=== PATIENT | male | born 1960 | race Caucasian/White ===

== ENCOUNTER 2024-09-27 20:02 | Emergency (ER) | payer SELFPAY ==
[2024-09-27 20:03] VITALS: BP 129/79; PULSE 92; RESP 16; TEMP 36.8; O2SAT 98; BMI 29.0
--- NOTE | 2024-09-27 20:56 | ED.RN ---
LEFT WITHOUT BEING SEEN AT 2036. PT. REPORTS IT IS DRAINING NOW IN REFERENCE TO HIS ARNOLD. REGISTRATION NOTIFIED
--- OUTSIDE RECORDS SUMMARY | 2024-09-27 21:00 | XMS RPT_ITS | CCD ---
Author Organization [facility] Care Team Providers Care 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 Name Role Phone Stephanie Schwartz Unavailable Unavailable PROVIDER, UNKNOWN Unavailable Unavailable Elisabet Garcia Unavailable Unavailable Panda Andreea Unavailable Unavailable PROVIDER, UNKNOWN Unavailable Unavailable Elisabet Garcia Unavailable Unavailable Elisabet Garcia MD Primary Care Provider Elisabet Garcia MD Primary Care Provider Assessment, Health Risk Attending Unavaila [facility] Care Physician, No Primary Primary Care Unava ilable Maxime Aguayo MD Unavailable [phone] ELISABET GARCIA Attending Unavailable ELISABET GARCIA Primary Care Unavailable ELISABET GARCIA Primary Care Unavailable MAXIME AGUAYO Attending Unavailable ELISABET GARCIA Primary Care Unavailable Medications Current Medications Medication Drug Class(es) Dates Sig (Normalized) Sig (Original) tamsulosin hydrochloride 0.4 mg oral capsule (1 source) alpha-Adrenergic Rhonda Start: 09-24-2024 End: 09-24-2025 take 1 capsule by mouth once daily tamsulosin (Flomax) 0.4 MG 24 hr capsule Take 1 capsule (0.4 mg) by mouth daily. 90 capsule 3 09/24/2024 09/24/2025 Active valACYclovir 1000 mg oral tablet (1 source) Herpesvirus Nucleoside Analog DNA Polymerase Inhibitor, Herpes Simplex Virus Nucleoside Analog DNA Polymerase Inhibitor, Herpes Zoster Virus Nucleoside Analog DNA Polymerase Inhibitor Start: 03-04-2024 End: 03-11-2024 take 1 tablet by mouth three times daily valACYclovir (Valtrex) 1 g tablet Take 1 tablet (1,000 mg) by mouth 3 times daily for 7 days. 21 tablet 2 03/04/2024 03/11/2024 Active Completed/Discontinued Medications Medication Drug Class(es) Dates Sig (Normalized) Sig (Original) bacitracin 0.5 unt/mg topical ointment (2 sources) Start: 06-14-2022 End: 06-14-2022 bacitracin ointment 10 ml lidocaine hydrochloride 10 mg/ml injection (2 sources) Antiarrhythmic, Amide Local Anesthetic Start: 06-14-2022 End: 06-14-2022 lidocaine (Xylocaine) 1 % injection 10 mL Problems Active Problems Problem Classification Problem Date Documented Date Episodic/Chronic Genitourinary symptoms and ill-defined conditions (4 sources) Other retention of urine; Translations: [Retention of urine, unspecified] Onset: 09-23-2024 Episodic Hyperplasia of prostate (6 sources) Benign prostatic hypertrophy with outflow obstruction; Translations: [Benign prostatic hyperplasia with lower urinary tract symptoms] Onset: 09-24-2024 09-24-2024 Chronic Open wounds of head; neck; and trunk (2 sources) Laceration of forehead; Translations: [Laceration without foreign body of other part of head, initial encounter] Episodic Other nervous system disorders (4 sources) Left leg peripheral neuropathy; Translations: [Unspecified mononeuropathy of left lower limb] Onset: 07-28-2016 11-29-2021 Chronic Other screening for suspected conditions (not mental disorders or infectious disease) (6 sources) Patient encounter status; Translations: [Encounter for screening for diabetes mellitus] Onset: 09-24-2024 09-24-2024 Episodic Spondylosis; intervertebral disc disorders; other back problems (2 sources) Other intervertebral disc degeneration, lumbosacral region; Translations: [Other intervertebral disc degeneration, lumbosacral region] Onset: 07-26-2017 Chronic Spondylosis; intervertebral disc disorders; other back problems (2 sources) Low back pain; Translations: [Low back pain] Onset: 07-26-2017 Episodic Substance-related disorders (2 sources) Nicotine dependence, cigarettes, uncomplicated; Translations: [Nicotine dependence, cigarettes, uncomplicated] Onset: 09-30-2016 Chronic Past or Other Problems Problem Classification Problem Date Documented Da te Episodic/Chronic Abdominal hernia (10 sources) Unilateral inguinal hernia, without obstruction or gangrene, not specified as recurrent; Translations: [Left inguinal hernia ] Onset: 07-28-2016 11-29-2021 Episodic Other and unspecified benign neoplasm (4 sources) Benign neoplasm of skin of lower limb; Translations: [Other benign neoplasm of skin of unspecified lower limb, including hip] Onset: 06-08-2015 11-29-2021 Episodic Other connective tissue disease (4 sources) Synovial cyst of knee; Translations: [Synovial cyst of popliteal space [[place]ry], unspecified knee] Onset: 07-28-2016 11-29-2021 Episodic Other connective tissue disease (4 sources) Infection of olecranon bursa of left elbow; Translations: [Other infective bursitis, left elbow] Onset: 08-24-2020 11-29-2021 Episodic Other skin disorders (4 sources) Sebaceous cyst of skin; Translations: [Sebaceous cyst] Onset: 06-04-2015 11-29-2021 Episodic Unclassified (4 sources) Family history of arthritis; Translations: [Family history of ischemic heart disease and other diseases of the circulatory system] Onset: 09-30-2016 Episodic Results Test Name Value Interpretation Reference Range Facility 36on 09-25-2024 36 Message released to patient as written. Elisabet Garcia MD to [facility] Alicia Clinical Engineered Wood Designer 09/25/24 5:48 AM Result Note Blood sugar and chemistry are normal. Kidney function is excellent. Cholesterol total is borderline, good is very good at 60 canceling some of the bad which is up at 123 very strict low-fat low-cholesterol diet and recheck in 1 year. Patient's further questions if applicable: Patient voiced understanding, no questions or concerns at this time. Were all questions from office addressed or relayed to the patient from encounter: Yes [facility] Office Visiton 09-24-2024 Follow-up visit [id number] Dot Garcia 1960 M Date Provider Department Center 09/24/2024 [id number]-JLOBECELISABET GARCIA [facility] Family History Problem Relation Age of Onset Heart disease Father Arthritis Father Family Status - Relation Status Age at Father Alive Level of Service:91557 NE INITIAL PREVENTIVE MEDICINE NEW PATIENT 40-64YRS Reason for Visit and Comments: ER Follow-up [831] - In [place]-09/14/24 and 09/16/24 Urinary Retention [940265] - Still have catheter Saw urology this morning - Dr Maxime Aguayo has testing scheduled [facility] Follow-up visit [id number] Dot Garcia 1960 M Date Provider Department Center 09/24/2024 [id number]-JJIWLMAXIME AGUAYOLisbeth URO BAR None Family History Problem Relation Age of Onset Heart disease Father Arthritis Father Family Status - Relation Status Age at Father Alive Level of Service:30432 NE OFFICE/OUTPATIENT NEW MODERATE MDM 45 MINUTES Reason for Visit and Comments: Urinary Retention [616433] - Patient was in hospital in [place] due to urinary retention. Catheter was placed and failed voiding trial before traveling home. He failed voiding trial again yesterday 09/23/24 and catheter replaced. Currently has bloody urine draining from catheter. [facility] Progress Noteon 09-24-2024 Progress Note Significant, he is currently on Flomax and has an indwelling catheter from urology. He is scheduled for a cystoscopy in 2 weeks. [facility] Progress Note Significant, he is currently on Flomax and has an indwelling catheter from urology. He is scheduled for a cystoscopy in 2 weeks. [facility] Progress Note 09/24/2024 Laith Garcia (: 1960) is a 64 y.o. male , Established patient, here for evaluation of the following chief complaint(s): ER Follow-up (In [place]-09/14/24 and 09/16/24) and Urinary Retention (Still have catheter /Saw urology this morning - Dr Maxime Aguayo has testing scheduled ) ASSESSMENT/PLAN: 1. Annual physical exam 2. Benign prostatic hyperplasia with urinary retention Assessment & Plan: Significant, he is currently on Flomax and has an indwelling catheter from urology. He is scheduled for a cystoscopy in 2 weeks. 3. Urinary retention due to benign prostatic hyperplasia Assessment & Plan: Significant, he is currently on Flomax and has an indwelling catheter from urology. He is scheduled for a cystoscopy in 2 weeks. 4. Screening for diabetes mellitus - Comprehensive metabolic panel 5. Screening for lipid disorders - Lipid panel Follow up in about 1 year (around 09/24/2025). SUBJECTIVE/OBJECTIVE: GERI Sandoval comes in today to establish as a new patient, he was on vacation in [place] and ended up with urinary retention and a catheter we hooked him up with urology and he is here for an annual exam. He has no other complaints at this time, he has not had blood work a number of years so we will do that today and he does continue to smoke he says he is smoking about a pack a day and we discussed smoking cessation and he gives no indication he is ready to quit. Review of Systems Constitutional: Negative for activity change, appetite change, chills, fever and unexpected weight change. HENT: Negative for ear pain and sore throat. Respiratory: Negative for shortness of breath. Cardiovascular: Negative for chest pain and palpitations. Gastrointestinal: Negative for abdominal pain, blood in stool, constipation and diarrhea. Genitourinary: Positive for difficulty urinating. Negative for dysuria, frequency, hematuria and urgency. Musculoskeletal: Negative for arthralgias and back pain. Skin: Negative. Neurological: Negative for weakness and numbness. Psychiatric/Behavioral: Negative for dysphoric mood. The patient is not nervous/anxious. Vitals: 09/24/24 1401 BP: 134/78 Pulse: 73 SpO2: 98% Weight: 176 lb 9.6 oz (80.1 kg) Height: 5' 6 (1.676 m) Physical Exam Vitals and nursing note reviewed. Constitutional: General: He is not in acute distress. Appearance: Normal appearance. HENT: Right Ear: Tympanic membrane, ear canal and external ear normal. Left Ear: Tympanic membrane, ear canal and external ear normal. Mouth/Throat: Mouth: Mucous membranes are moist. Pharynx: Oropharynx is clear. Eyes: Extraocular Movements: Extraocular movements intact. Conjunctiva/sclera: Conjunctivae normal. Pupils: Pupils are equal, round, and reactive to light. Neck: Thyroid: No thyromegaly. Vascular: No carotid bruit. Cardiovascular: Rate and Rhythm: Normal rate and regular rhythm. Heart sounds: Normal heart sounds. No murmur heard. Pulmonary: Effort: Pulmonary effort is normal. Breath sounds: Normal breath sounds. Abdominal: General: Bowel sounds are normal. Palpations: Abdomen is soft. Tenderness: There is no abdominal tenderness. Musculoskeletal: General: Normal range of motion. Cervical back: Neck supple. Lymphadenopathy: Cervical: No cervical adenopathy. Skin: General: Skin is warm and dry. Neurological: General: No focal deficit present. Mental Status: He is alert and oriented to person, place, and time. Psychiatric: Mood and Affect: Mood normal. An electronic signature was used to authenticate this note. Elisabet Garcia MD 09/24/2024 3:49 PM [facility] Progress Note Patient verified by last name and date of . [facility] Progress Note Patient identified b y name and date of .After obtaining consent, and per orders of Elisabet Garcia MD, injection of Prevnar 20 given in the left deltoid by Michelle Wells. Patient instructed to report any adverse reactions immediately. [facility] Progress Note Maxime Aguayo MD 09/24/2024 at 10:14 AM UROLOGY INITIAL OFFICE VISIT PATIENT NAME: Laith Garcia DATE OF : 1960 TODAY'S DATE: 09/24/2024 Chief Complaint: Chief Complaint Patient presents with Urinary Retention Patient was in hospital in [place] due to urinary retention. Catheter was placed and failed voiding trial before traveling home. He failed voiding trial again yesterday 09/23/24 and catheter replaced. Currently has bloody urine draining from catheter. HISTORY OF PRESENT ILLNESS: Mr. Garcia is a 64 y.o. male who presents with urinary retention I just shut down when I was in [place] Didn't make it to the hospital until next morning Catheter placed for 1.5L Never had a retention episode prior to this Took 3 tries to get the catheter working correctly Tried to get it removed on 09/16 but couldn't urinate They started him on flomax in [place] Before AUR episode, stream was weakening, increased frequency Nocturia - couple to 4-5x REVIEW OF SYSTEMS: Review of Systems Genitourinary: Positive for difficulty urinating and hematuria. Denies respiratory distress Past Medical History: Medical History[1] PastSurgical History: Surgical History[2] CurrentMedications: Current Medications[3] Allergies: Allergies[4] Social History: Social History[5] Family History: Family History[6] PHYSICAL EXAM: VITALS: BP 135/78 (BP Location: Right arm, Patient Position: Sitting) Pulse 78 Ht 5' 6 (1.676 m) Wt 180 lb (81.6 kg) BMI 29.05 kg/m? Physical Exam Constitutional: General: He is not in acute distress. Appearance: He is not ill-appearing. HENT: Head: Normocephalic and atraumatic. Right Ear: External ear normal. Left Ear: External ear normal. Nose: Nose normal. Eyes: Extraocular Movements: Extraocular movements intact. Pulmonary: Effort: Pulmonary effort is normal. No respiratory distress. Genitourinary: Comments: Catheter draining light red urine, see through Neurological: Mental Status: He is alert. DATA: No results found for: PSA No results found for: TESTOSTERONE No results found for: WBC, HGB, HCT, MCV, PLT No results found for: GLUCOSE, CALCIUM, NA, K, CO2, CL, BUN, CREATININE No components found for: LABURIN @LASTPROCPOC@ Radiology Review: Impression/Plan Laith was seen today for urinary retention. Diagnoses and all orders for this visit: Benign prostatic hyperplasia with urinary retention (Primary) Other orders - tamsulosin (Flomax) 0.4 MG 24 hr capsule; Take 1 capsule (0.4 mg) by mouth daily. Went into urinary retention while in [place] on fishing trip on 09/13/24 Catheter was placed for 1.5L Attempted void trials on 09/16 and 09/23 failed despite being on flomax daily Discussed recommendation to proceed with evaluation with cystoscopy and TRUS in the office Continue flomax daily, Rx refilled Follow up for cysto, TRUS. Maxime Aguayo MD 09/24/24 10:14 AM [1] Past Medical History: Diagnosis Date Deviated nasal septum Right inguinal hernia SCHEDULED FOR THE SURGERY TO-DAY I.E 09/30/2016 Shingles Smoker SMOKER'S COUGH [2] Past Surgical History: Procedure Laterality Date ANTERIOR CRUCIATE LIGAMENT REPAIR Right HERNIA REPAIR 09/30/2016 [facility] NASAL SEPTUM SURGERY WISDOM TOOTH EXTRACTION [3] Current Outpatient Medications: tamsulosin (Flomax) 0.4 MG 24 hr capsule, Take 1 capsule (0.4 mg) by mouth daily., Disp: 90 capsule, Rfl: 3 [4] No Known Allergies [5] Social History Socioeconomic History Marital status: Tobacco Use Smoking status: Every Day Current packs/day: 1.00 Average packs/day: 1 pack/day for 40.0 years (40.0 ttl pk-yrs) Types: Cigarettes Smokeless tobacco: Never Tobacco comments: Quit smoking: LONG TIME Substance and Sexual Activity Alcohol use: Yes Alcohol/week: 30.0 standard drinks of alcohol Types: 30 Cans of beer per week Drug use: Not Currently Sexual activity: Not Currently Partners: Female Social Drivers of Health Financial Resource Strain: Low Risk (09/21/2024) Overall Financial Resource Strain (CARDIA) Difficulty of Paying Living Expenses: Not hard at all Food Insecurity: No Food Insecurity (09/21/2024) Hunger Vital Sign Worried About Running Out of Food in the Last Year: Never true Ran Out of Food in the Last Year: Never true Transportation Needs: No Transportation Needs (09/21/2024) PRAPARE - Transportation Lack of Transportation (Medical): No Lack of Transportation (Non-Medical): No Physical Activity: Sufficiently Active (09/21/2024) Exercise Vital Sign Days of Exercise per Week: 5 days Minutes of Exercise per Session: 90 min Stress: No Stress Concern Present (09/21/2024) [place] [employer] - Occupational Stress Questionnaire Feeling of Stress : Only a little Social Connections: Moderately Integrated (09/21/2024) Social Connection and Isolation (more content not included)... [facility] 36on 09-23-2024 36 No answer - pt sched for appt 09/[address] Garcia at 2:15 . Arrive 15 min prior and bring insurance card, and ID Bring in all medication [facility] Progress Noteon 09-23-2024 Progress Note We want to inform yo u that your patient's blood pressure was noted to be elevated in our office today. We thank you for trusting us with your patient's health. Last BP: BP Readings from Last 1 Encounters: 09/23/24 1016 (!) 153/77 09/23/24 1009 (!) 157/84 [facility] Progress Note [facility] [address] [place] [id number] Urology Nursing Visit PATIENT NAME: Laith Garcia DATE OF : 1960 TODAY'S DATE: 09/23/2024 Patient presents today for indwelling flores catheter removal and trial of voiding. Patient presents for flores catheter removal and trial of voiding after episode of urinary retention. Patient is currently on Tamsulosin (Flomax). Allergies[1] Procedure: The existing 16 amharic coud? tip catheter was instilled with 250 mL of sterile water into the urinary bladder. The catheter balloon was deflated, removing 10 mL of fluid. The catheter was clamped and then removed without difficulty. The patient was unable to void immediately. Patient tolerated well. UROJET 6 ML [facility] [id number] LOT # [id number] EXPIRES 08/2026 Administered by ANNETTA Pt tolerated well PLAN: Patient was unable to void with cath removal today. 16 Greek coud? tip catheter replaced. Will plan for follow-up for office visit with Dr. Aguayo 09/24/2024 Advised patient that it is common to having some burning with urination and to see blood-tinged urine intermittently for 2-4 weeks after catheter removal due to nature of recent surgical procedure. This timeframe can be longer if on blood thinning medications. Encouraged patient to increase fluids over the next few weeks to help with blood in urine and burning with urination that can occur. Patient instructed to go to ER if fever >100.4F +/- chills develop or unable to urinate. [1] No Known Allergies [facility] Comprehensive Metabolic Prof [facility] 03-14-2024 Albumin [Mass/Vol] 3.6 g/dL Normal 3.2-5.0 [facility] Comment on above: Performed By: #### L [id number], [id number] #### [facility] [address] [place], [address] Albumin/Globulin [Mass ratio] 1.0 {ratio} Normal 0.9-2.4 [facility] Comment on above: Performed By: #### L [id number], [id number] #### [facility] [address] [facility] [place], [address] ALK P 79 U/L Normal 45-117 [facility] Comment on above: Performed By: #### L [id number], [id number] #### [facility] [address] [place], [address] ALT [Catalytic activity/Vol] 33 U/L Normal 16-61 [facility] Comment on above: Performed By: #### L [id number], [id number] #### [facility] [address] [place], [address] AST [Catalytic activity/Vol] 23 U/L Normal 15-37 [facility] Comment on above: Performed By: #### L [id number], [id number] #### [facility] [address] [place], [address] Bilirubin [Mass/Vol] 0.50 mg/dL Normal 0.20-1.00 [facility] Comment on above: Result Comment: For patients on eltrombopag therapy, use of Dimension [place] TBIL is not recommended. Performed By: #### L [id number], [id number] #### [facility] [address] [place], [address] BUN/CRE 13.3 RATIO Normal 10-20 [facility] Comment on above: Performed By: #### L [id number], [id number] #### [facility] [address] [place], [address] CA,Total 9.1 mg/dL Normal 8.5-10.1 [facility] Comment on above: Performed By: #### L [id number], [id number] #### [facility] [address] [place], [address] Chloride [Moles/Vol] 106 mmol/L Normal 98-107 [facility] Comment on above: Performed By: #### L [id number], [id number] #### [facility] [address] [place], [address] CO2 [Moles/Vol] 25.0 mmol/L Normal 21.0-32.0 [facility] Comment on above: Performed By: #### L [id number], [id number] #### [facility] [address] [place], [address] Creatinine [Mass/Vol] 1.13 mg/dL Normal 0.70-1.30 [facility] Comment on above: Result Comment: The validity of the calculated GFR GFRAA in patients over 70 years has not been determined. Clinical correlation is essential. Performed By: #### L [id number], [id number] #### [facility] [address] [place], [address] EST GFR - AA 85 mL/min Normal >60 [facility] Comment on above: Result Comment: Afri can Ugandan GFR Calc Performed By: #### L [id number], [id number] #### [facility] [address] [place], [address] GAP 7 Normal 5-15 [facility] Comment on above: Performed By: #### L [id number], [id number] #### [facility] [address] [place], [address] GFR/1.73 sq M.predicted among non-blacks MDRD (S/P/Bld) [Vol rate/Area] 70 mL/min/{1.73_m2} Normal >60 [facility] Comment on above: Result Comment: Non- GFR Calc Performed By: #### L [id number], [id number] #### [facility] [address] [place], [address] Globulin (S) [Mass/Vol] 3.7 g/dL Normal 2.2-4.2 [facility] Comment on above: Performed By: #### L [id number], [id number] #### [facility] [address] [place], [address] Glucose [Mass/Vol] 116 mg/dL High 74-106 [facility] Comment on above: Result Comment: Fast ing Glucose result from 100 to 125 mg/dL suggests IMPAIRED HOMEOSTASIS per A.D.A. criteria. Performed By: #### L [id number], [id number] #### [facility] [address] [place], [address] Potassium [Moles/Vol] 4.3 mmol/L Normal 3.5-5.1 [facility] Comment on above: Performed By: #### L [id number], [id number] #### [facility] [address] [place], [address] Sodium [Moles/Vol] 138 mmol/L Normal 136-145 [facility] Comment on above: Performed By: #### L [id number], [id number] #### [facility] [address] [place], [address] T PROT 7.3 g/dL Normal 6.4-8.2 [facility] Comment on above: Performed By: #### L [id number], [id number] #### [facility] [address] [place], [address] Urea nitrogen [Mass/Vol] 15 mg/dL Normal 7-18 [facility] Comment on above: Performed By: #### L [id number], [id number] #### [facility] [address] [place], [address] Lipid Profileon 03-14-2024 Cholesterol [Mass/Vol] 193 mg/dL Normal 200 [facility] Comment on above: Result Comment: <200 mg/dL Desirable 200-240 mg/dL Borderline >240 mg/dL High Risk Performed By: #### L 500.4050, L500.4100 #### [facility] [address] [place], [address] Cholesterol in HDL [Mass/Vol] 44 mg/dL Normal [facility] Comment on above: Result Comment: The drugs N-Acetylcysteine and Metamizole may falsely depress this assay. Reference Range HDL <40 mg/dL Low HDL Cholesterol HDL >or= 60 mg/dL High HDL Cholesterol Performed By: #### L 500.4050, L500.4100 #### [facility] [address] [place], [address] Cholesterol in LDL [Mass/Vol] 116 mg/dL Normal 0-130 [facility] Comment on above: Performed By: #### L 500.4050, L500.4100 #### [facility] [address] [place], [address] Cholesterol in VLDL [Mass/Vol] 33 mg/dL Normal 5-40 [facility] Comment on above: Performed By: #### L 500.4050, L500.4100 #### [facility] [address] [place], [address] Triglyceride [Mass/Vol] 165 mg/dL Normal [facility] Comment on above: Result Comment: The drugs N-Acetylcysteine and Metamizole may falsely depress this assay. Serum Triglycerides Reference Interval Normal <150 mg/dL Borderline high 150 - 199 mg/dL High 200 - 499 mg/dL Very High > or = 500 mg/dL Performed By: #### L 500.4050, L500.4100 #### [facility] [address] [place], [address] No Panel Informationon 06-14 Percy Pacheco MD 06/14/2022 1:22 PM Laceration Repair Performed by: Percy Pacheco MD Authorized by: Percy Pacheco MD Consent: Consent obtained: Verbal Consent given by: Patient Risks, benefits, and alternatives were discussed: yes Risks discussed: Infection and pain Alternatives discussed: No treatment and delayed treatment [facility] protocol: Procedure explained and questions answered to patient or proxy's satisfaction: yes Relevant documents present and verified: yes Test results available: no Imaging studies available: no Required blood products, implants, devices, and special equipment available: no Site/side marked: yes Immediately prior to procedure, a time out was called: yes Patient identity confirmed: Verbally with patient Anesthesia: Anesthesia method: Local infiltration Local anesthetic: Lidocaine 1% w/o epi Laceration details: Location: forehead. Length (cm): 2.5 Depth (mm): 2 Pre-procedure details: Preparation: Patient was prepped and draped in usual sterile fashion Exploration: Hemostasis achieved with: Direct pressure Imaging outcome: foreign body not noted Wound extent: no areolar tissue violation noted, no fascia violation noted, no foreign bodies/material noted, no muscle damage noted, no nerve damage noted, no tendon damage noted, no underlying fracture noted and no vascular damage noted Contaminated: no Treatment: Area cleansed with: Chlorhexidine Irrigation solution: Sterile saline Irrigation volume: 5 cc Irrigation method: Pressure wash Visualized foreign bodies/material removed: no Debridement: None Scar revision: no Skin repair: Repair method: Sutures Suture size: 5-0 Suture material: Nylon Suture technique: Simple interrupted Number of sutures: 6 Approximation: Approximation: Close Repair type: Repair type: Simple Post-procedure details: Dressing: Antibiotic ointment Procedure completion: Tolerated [facility] CR Knee 3 Views Righton 07-14 CR Knee 3 Views Right Patient Name: LAITH GARCIA Diagnostic Radiology Exam Date/Time 07/26/2017 10:47:03 EDT Exam CR Knee 3 Views Right Ordering Physician MD MOSQUEDA CATHERINE Accession Number [id number] CPT4 Codes 34816 () Reason For Exam pain of right knee Report Examination: Right knee three views Indication: pain of right knee Findings: No acute fracture or dislocation is noted. Moderate medial compartment joint space loss is present with small osteophytes. The soft tissues are grossly unremarkable. Impression: No acute osseous abnormality. Medial compartment osteoarthritis. Report Dictated on Workstation: [facility] Final Dictating Physician: TINO JARQUIN Signed Date and Time: 07/26/2017 11:11 am Signed by: TINO JARQUIN Transcribed Date and Time: 07/26/2017 11:12 Normal [facility] CR Spine Lumbosacral 4+ View son 07-26-2017 CR Spine Lumbosacral 4+ Views Patient Name: LAITH GARCIA Diagnostic Radiology Exam Date/Time 07/26/2017 10:47:03 EDT Exam CR Spine Lumbosacral 4+ Views Ordering Physician MD MOSQUEDA CATHERINE Accession Number [id number] CPT4 Codes 19645 () Reason For Exam low back pain Report CLINICAL INFORMATION: Low back pain. Frontal, bilateral oblique , L5/S1 spot view and lateral views of the lumbar spine were obtained. There are 5 lumbar type vertebrae. Bone density appears normal. The vertebral heights are within normal limits. No spondylolysis is noted. Lateral view shows 0.2 cm of retrolisthesis of L2 in reference to L3. This finding is likely degenerative. Mild disc space narrowing at L1-L2, and L2-L3. Moderate disc space at L5-S1. Degenerative endplate changes throughout the lumbar spine. No fracture is noted. IMPRESSION: Mild to moderate degenerative disc and endplate changes. Report Dictated on Final Dictating Physician: MD NGUYEN LAURA Signed Date and Time: 07/26/2017 2:55 pm Signed by: MD NGUYEN LAURA Transcribed Date and Time: 07/26/2017 2:56 Normal [facility] US Venous Extremity RT lower on 07-26-2017 US Venous Extremity RT lower Patient Name: LAITH GARCIA Ultrasound Exam Date/Time 07/26/2017 10:34:56 EDT Exam US Venous Extremity RT lower Ordering Physician MD MOSQUEDA CATHERINE Accession Number [id number] CPT4 Codes 37999 (US Venous Extremity RT lower) Reason For Exam LEG SWELLING, PAIN, DVT SUSPECTED Report ULTRASOUND RIGHT LOWER EXTREMITY VEINS Protocol: Ultrasound evaluation, including color flow and Doppler sonography, of the veins of the right lower extremity was performed. Color flow imaging demonstrates normal flow. Two-dimensional imaging demonstrates no evidence of a filling defect or reduced compressibility. Pulse Doppler demonstrates normal phasic flow with adequate augmentation and normal response to Valsalva maneuver. A 4.5 a 3.3 x 1.1 cm complex cystic lesion in the right popliteal fossa is suspicious for a Perry's cyst. IMPRESSION: No evidence of deep venous thrombus in the right lower extremity. A 4.5 a 3.3 x 1.1 cm complex cystic lesion in the right popliteal fossa is suspicious for a Perry's cyst. Report Dictated on Final Dictating Physician: MD NARANJO MALAY Signed Date and Time: 07/26/2017 10:34 am Signed by: MD NARANJO MALAY Transcribed Date and Time: 07/26/2017 10:35 Normal [facility] Surgical Pathologyon 017 Surgical Pathology [id number] [facility] PATHOLOGY AND LABORATORY MEDICINE [address] [place] [phone] Fax - FINAL SURGICAL PATHOLOGY REPORT NAME: VICKEY GARCIAGLO Mendoza .O.B.: 1960 56 Y Andrae PEDERSEN NO.: [id number]: BSDSO SDS 04 PROCEDURE 09/30/2016 DATE:SURGEON: STEPHANIE SCHWARTZ M.D. RECEIVED 10/03/2016 DATE:ATTENDING: STEPHANIE SCHWARTZ M.D. REPORT DATE: 10/04/2016 COPIES TO: DIA GNOSIS:RIGHT CREMASTER, EXCISION - NON-INFLAMED ADIPOSE TISSUE AND SKELETALMUSCLEANKITW/DEEPALI ABBOTT M.D. CL INICAL INFORMATION: Right inguinal herniaSPECIMEN: HERNIA , CREMASTER ___GROSS DESCRIPTION:Right cremasterReceived in formalin are multiple fibrofatty tissue segmentsaggregating to approximately 1.5 x 1.5 cm. Some tissue is slightlymembranous. No areas of nodularity are identified. Specimen isentirely submitted in a single cassette. (bits ns, 1) JCK/NGUYENisclaimer: The following statement applies to allimmunohistochemistry, in situ hybridization, molecular studies, andimmunofluorescence testing.The use of one or more reagents in the above tests is regulated as ananalyte specific reagent (ASR). These tests were developed and theirperformance characteristics determined by the clinical laboratories [facility]. They have not been cleared by the US Food and DrugAdministration (FDA). The FDA has determined that such clearance orapproval is not necessary.All the above immunostains were performed on paraffin embedded tissue.Appropriate positive and negative controls (where applicable) were runin parallel with the patient's specimen; these controls showed expectedstaining pattern, with acceptable intensity of staining.Immunohistochemic al assays have not been validated on decalcifiedtissues. Results should be interpreted with caution given the raisedpossibility of false negativity on decalcified specimens.Case reviewed at [address], [id number]. DEPARTMENT OF PATHOLOGY AND LABORATORY MEDICINE [place], [place] [address] Normal [facility] Comment on above: Performed By: #### S UR ####Performing Lab is in report Vital Signs Date Time Vital Sign Value Performing Clinician Anil longoria 09-24-2024 14:01-0400 Body height 167.6 cm Elisabet Garcia MD Work Phone: [facility] [employer] 09-24-2024 14:01-0400 Body mass index (BMI) [Ratio] 28.5 kg/m2 Elisabet Garcia MD Work Phone: [facility] [employer] 09-24-2024 14:01-0400 Body weight 80.11 kg Elisabet Garcia MD Work Phone: [facility] [employer] 09-24-2024 14:01-0400 Diastolic blood pressure 78 mm[Hg] Elisabet Garcia MD Work Phone: [facility] [employer] 09-24-2024 14:01-0400 Heart rate 73 /min Elisabet Garcia MD Work Phone: [facility] [employer] 09-24-2024 14:01-0400 SaO2% (BldA) [Mass fraction] 98 % Elisabet Garcia MD Work Phone: [facility] [employer] 09-24-2024 14:01-0400 Systolic blood pressure 134 mm[Hg] Elisabet Estrada Work Phone: [facility] [employer] 06-14-2022 12:35-0400 Body height 167.6 cm Percy Pacheco MD Work Phone: [facility] [employer] 06-14-2022 12:35-0400 Body mass index (BMI) [Ratio] 29.05 kg/m2 Percy Pacheco MD Work Phone: [facility] [employer] 06-14-2022 12:35-0400 Body temperature 97.9 [degF] Percy Pacheco MD Work Phone: [facility] [employer] 06-14-2022 12:35-0400 Body weight 81.65 kg Percy Pacheco MD Work Phone: [facility] [employer] 06-14-2022 12:35-0400 Diastolic blood pressure 100 mm[Hg] Percy Pacheco MD Work Phone: [facility] [employer] 06-14-2022 12:35-0400 Heart rate 74 /min Percy Pacheco MD Work Phone: [facility] 06-14-2022 12:35-0400 Respiratory rate 16 /min Percy Pacheco MD Work Phone: [facility] 06-14-2022 12:35-0400 SaO2% (BldA) [Mass fraction] 97 % Percy Pacheco MD Work Phone: [facility] 06-14-2022 12:35-0400 Systolic blood pressure 149 mm[Hg] Percy Pacheco MD Work Phone: [facility] Encounters Encounter Date Encounter Type Care Provider Facility Start: 09-24-2024 End: 09-24-2024 Initial preventive medicine new patient 40-64yrs Elisabet Garcia MD Work Phone: [facility] Comment on above: Annual physical exam (Primary Dx); Benign prostatic hyperplasia with urinary retention; Urinary retention due to benign prostatic hyperplasia; Screening for diabetes mellitus; Screening for lipid disorders Start: 09-24-2024 End: 09-24-2024 Patient encounter procedure Elisabet Garcia MD Work Phone: [facility] Work Phone: Start: 09-24-2024 End: 09-24-2024 ambulatory [facility] Start: 09-24-2024 End: 09-24-2024 Encounter for general adult medical examination without abnormal findings ELISABET [facility] Start: 09-24-2024 End: 09-24-2024 ambulatory MAXIME AGUAYO [facility] Start: 09-23-2024 End: 09-23-2024 ambulatory [facility] Start: 03-14-2024 ambulatory Health Risk Assessment Facility:[facility] Start: 03-04-2024 End: 03-04-2024 Orders Only Elisabet Garcia MD Work Phone: [facility] Start: 06-14-2022 End: 06-14-2022 Emergency department patient visit Percy Pacheco MD Work Phone: [facility] Comment on above: Laceration of forehe ad, initial encounter (Primary Dx) Start: 07-26-2017 Ambulatory Andreea Mosqueda [facility] Start: 09-30-2016 Ambulatory Stephanie Eli [facility] Procedures Date Procedure Procedure Detail Performing Clinician Start: 09-21-2024 Adult depression scr eening assessment Elisabet Garcia MD Work Phone: Start: 06-14-2022 PB ED PLACEHOLDER Percy Pacheco MD Work Phone: Plan of Treatment Date Care Activity Detail Author Start: 2037 RSV Immunization for Adults (1 - 1-dose 75+ series) RSV Immunization for Adults (1 - 1-dose 75+ series) [facility] Start: 06-14-2032 DTaP/Tdap/Td Vaccine s (2 - Td or Tdap) DTaP/Tdap/Td Vaccines (2 - Td or Tdap) [facility] Start: 09-30-2025 End: 09-30-2025 Patient encounter procedure 09/30/2025 7:00 AM EDT Office Visit [address] [address] Elisabet Garcia MD [address] [facility] [place] [address] [facility] Start: 09-21-2025 Depression Screening Depression Scre ening [facility] Start: 10-16-2024 End: 10-16-2024 Patient encounter procedure 10/16/2024 8:20 AM EDT Procedure Visit [facility] [place] [address] [place] [id number] Raza Manley MD [address] [place], [place] [id number] [facility] [place] Start: 10-14-2024 Influenza vaccination Influenza Vacc ine (#1) [facility] Start: 10-07-2024 End: 10-07-2024 Patient encounter procedure 10/07/2024 8:20 AM EDT Procedure Visit [facility] [place] [address] [place] [address] Maxime Aguayo MD [address] [place] [address] [facility] [place] Start: 09-24-2024 End: 09-24-2025 Comprehensive metabolic 1998 panel - Serum or Plasma Comprehensive metabolic panel Lab Routine Screening for diabetes mellitus Expected: 09/24/2024 (Approximate), Expires: 09/24/[address] [facility] Work Phone: Comment on above: Expected: 09/24/2024 (Approximate), Expires: 09/24/2025 Start: 09-24-2024 End: 09-24-2025 Lipid 1996 panel - Serum or Plasma Lipid panel Lab Routine Screening for lipid disorders Expected: 09/24/2024 (Approximate), Expires: 09/24/[address] [facility] Comment on above: Expected: 09/24/2024 (Approximate), Expires: 09/24/2025 Start: 10-15-2023 COVID-19 Vaccine ( season) COVID-19 Vaccine ( season) [facility] Start: 10-15-2023 Influenza vaccination Influenza Vacc ine (#1) [facility] Start: 10-14-2022 Influenza vaccination Influenz a Vaccine (Season Ended) [facility] Start: 07-21-2020 COVID-19 Vaccine (3 - Booster for Moderna series) COVID-19 Vaccine (3 - Booster for Moderna series) [facility] Start: 01-08-2014 Zoster Vaccines (2 of 3) Zoster Vacc namrata (2 of 3) [facility] Start: 12-11-2013 MMR Vaccines (1 of 1 - Standard series) MMR Vaccines (1 of 1 - Standard series) [facility] Start: 2012 Screening for malign ant neoplasm of lung Lung Cancer Screening [facility] Start: 1981 Pneumococcal Vaccine : 50+ Years (1 of 2 - PCV) Pneumococcal Vaccine: 50+ Years (1 of 2 - PCV) [facility] Start: 1980 Diabetes mellitus screening Diabetes Screening [facility] Start: 1980 Hepatitis C screening Hepatitis C Sc reening [facility] Start: 1974 Depression Screening Depression Scre ening [facility] Start: 1968 Pneumococcal Vaccine : Pediatrics (0 to 5 Years) and At-Risk Patients (6 to 64 Years) (1 - PCV) Pneumococcal Vaccine: Pediatrics (0 to 5 Years) and At-Risk Patients (6 to 64 Years) (1 - PCV) [facility] Start: 1962 Hepatitis B Vaccines (1 of 3 - 3-dose series) Hepatitis B Vaccines (1 of 3 - 3-dose series) [facility] Start: 1960 HIV screening HIV Screening [facility] Start: 1962 Lipid panel Lipid Panel [facility] Start: 1962 Screening for malign ant neoplasm of colon [facility] Immunizations Immunization Date Immunization Notes Care Provider Fa cility 09-24-2024 Pneumococcal Conjuga te PCV20, Pf (Prevnar 20) Elisabet Garcia MD Work Phone: [facility] 06-14-2022 tetanus toxoid, redu sandra diphtheria toxoid, and acellular pertussis vaccine, adsorbed Percy Pacheco MD Work Phone: [facility] 01-30-2021 zoster vaccine recombinant Elisabet Garcia MD Work Phone: [facility] 11-29-2020 zoster vaccine recombinant Elisabet Garcia MD Work Phone: [facility] 05-26-2020 Moderna SARS-CoV-2 Vaccination Percy Pacheco MD Work Phone: [facility] 04-28-2020 Moderna SARS-CoV-2 Vaccination Percy Pacheco MD Work Phone: [facility] 11-13-2013 influenza virus vacc ine, whole virus Percy Pacheco MD Work Phone: [facility] 11-13-2013 zoster vaccine, live Percy baum MD Work Phone: [facility] 11-13-2013 influenza virus vacc ine, unspecified formulation Percy Pacheco MD Work Phone: [facility] Payers Date Payer Category Payer Self-pay 2024 [employer] are - HMO MMO [employer] [id number] 2024 Unknown [id number] 2022 Worker's Compensation [id number] Unknown Unknown [id number] Social History Date Type Detail Facility Start: 09-24-2024 Tobacco smoking status [facility] Smokes t obacco daily [facility] History of tobacco use Cigarette Smoker [facility] Start: 08-24-2020 End: 09-24-2024 Alcohol intake Current drinker of alcohol (finding) [facility] Start: 1960 Sex Assigned At Not on file [facility] Start: 06-04-2022 End: 06-14-2022 Exposure to SARS-CoV-2 (event) Not sure [facility] Start: 09-13-2021 Sex Male (finding) [facility] Start: 09-21-2024 End: 09-24-2024 Gender identity Not on file [facility] Start: 09-21-2024 End: 09-24-2024 Cigarettes smoked current (pack per day) - Reported [address] [facility] Start: 09-24-2024 Tobacco use and exposure Smokeless t obacco non-user [facility] How often do you nee d to have someone help you when you read instructions, pamphlets, or other written material from your doctor or pharmacy [SILS] Never [facility] Has the [employer], [employer], [employer], or water [employer] threatened to shut off services in your home in past 12Mo No [facility] Are you now , , , , never or living with a partner? [facility] How often to you hav e a drink containing alcohol? 2-3 time sa week [facility] How many standard dr inks containing alcohol do you have on a typical day? 5 or 6 [facility] How often do you hav e 6 or more drinks on 1 occasion? Weekly [facility] How hard is it for y ou to pay for the very basics like food, housing, medical care, and heating Not hard at all [facility] Do you feel stress - tense, restless, nervous, or anxious, or unable to sleep at night because your mind is troubled all the time - these days [OSQ] Only a little [facility] (I/We) worried wheth er (my/our) food would run out before (I/we) got money to buy more. Never true [facility] Clinical Notes 06-14-2022 to 09-24-2024 Assessment & Plan Note - Elisabet Garcia MD - 09/24/2024 3:48 PM EDTAssessment & Plan Note - Elisabet Garcia MD - 09/24/2024 3:48 PM Pérez Donohue MA - 09/24/2024 2:15 PM EDT Note Date & Type Note Facility 09-24-2024 Evaluation + Plan note Associated Problem(s): Urinary retention due to benign prostatic hyperplasia Significant, he is currently on Flomax and has an indwelling catheter from urology. He is scheduled for a cystoscopy in [address] [facility] 09-24-2024 Evaluation + Plan note Associated Problem(s): Benign prostatic hyperplasia with urinary retention Significant, he is currently on Flomax and has an indwelling catheter from urology. He is scheduled for a cystoscopy in [address] [facility] 09-24-2024 Miscellaneous Notes Associate d Problem(s): Urinary retention due to benign prostatic hyperplasia Significant, he is currently on Flomax and has an indwelling catheter from urology. He is scheduled for a cystoscopy in 2 weeks. Associated Problem(s): Benign prostatic hyperplasia with urinary retention Significant, he is currently on Flomax and has an indwelling catheter from urology. He is scheduled for a cystoscopy in 2 weeks. documented in this encounter [facility] 09-24-2024 History of Presen t illness Narrative Patient verified by last name and date of . Images from the original note were not included. 09/24/2024 Latih Garcia (: 1960) is a 64 y.o. male , Established patient, here for evaluation of the following chief complaint(s): ER Follow-up (In [place]-09/14/24 and 09/16/24) and Urinary Retention (Still have catheter /Saw urology this morning - Dr Maxime Aguayo has testing scheduled ) ASSESSMENT/PLAN: 1. Annual physical exam 2. Benign prostatic hyperplasia with urinary retention Assessment & Plan: Significant, he is currently on Flomax and has an indwelling catheter from urology. He is scheduled for a cystoscopy in 2 weeks. 3. Urinary retention due to benign prostatic hyperplasia Assessment & Plan: Significant, he is currently on Flomax and has an indwelling catheter from urology. He is scheduled for a cystoscopy in 2 weeks. 4. Screening for diabetes mellitus - Comprehensive metabolic panel 5. Screening for lipid disorders - Lipid panel Follow up in about 1 year (around 09/24/2025). SUBJECTIVE/OBJECTIVE: GERI Sandoval comes in today to establish as a new patient, he was on vacation in [place] and ended up with urinary retention and a catheter we hooked him up with urology and he is here for an annual exam. He has no other complaints at this time, he has not had blood work a number of years so we will do that today and he does continue to smoke he says he is smoking about a pack a day and we discussed smoking cessation and he gives no indication he is ready to quit. Review of Systems Constitutional: Negative for activity change, appetite change, chills, fever and unexpected weight change. HENT: Negative for ear pain and sore throat. Respiratory: Negative for shortness of breath. Cardiovascular: Negative for chest pain and palpitations. Gastrointestinal: Negative for abdominal pain, blood in stool, constipation and diarrhea. Genitourinary: Positive for difficulty urinating. Negative for dysuria, frequency, hematuria and urgency. Musculoskeletal: Negative for arthralgias and back pain. Skin: Negative. Neurological: Negative for weakness and numbness. Psychiatric/Behavioral: Negative for dysphoric mood. The patient is not nervous/anxious. Vitals: 09/24/24 1401 BP: 134/78 Pulse: 73 SpO2: 98% Weight: 176 lb 9.6 oz (80.1 kg) Height: 5' 6 (1.676 m) Physical Exam Vitals and nursing note reviewed. Constitutional: General: He is not in acute distress. Appearance: Normal appearance. HENT: Right Ear: Tympanic membrane, ear canal and external ear normal. Left Ear: Tympanic membrane, ear canal and external ear normal. Mouth/Throat: Mouth: Mucous membranes are moist. Pharynx: Oropharynx is clear. Eyes: Extraocular Movements: Extraocular movements intact. Conjunctiva/sclera: Conjunctivae normal. Pupils: Pupils are equal, round, and reactive to light. Neck: Thyroid: No thyromegaly. Vascular: No carotid bruit. Cardiovascular: Rate and Rhythm: Normal rate and regular rhythm. Heart sounds: Normal heart sounds. No murmur heard. Pulmonary: Effort: Pulmonary effort is normal. Breath sounds: Normal breath sounds. Abdominal: General: Bowel sounds are normal. Palpations: Abdomen is soft. Tenderness: There is no abdominal tenderness. Musculoskeletal: General: Normal range of motion. Cervical back: Neck supple. Lymphadenopathy: Cervical: No cervical adenopathy. Skin: General: Skin is warm and dry. Neurological: General: No focal deficit present. Mental Status: He is alert and oriented to person, place, and time. Psychiatric: Mood and Affect: Mood normal. An electronic signature was used to authenticate this note. Elisabet Garcia MD 09/24/2024 3:49 PM Patient identified by name and date of .After obtaining consent, and per orders of Elisabet Garcia MD, injection of Prevnar 20 given in the left deltoid by Michelle Wells. Patient instructed to report any adverse reactions immediately. documented in this encounter [facility] 06-14-2022 Note Associated Order(s): Laceration Repair Procedure Laceration Repair Performed by: Percy Pacheco MD Authorized by: Percy Pacheco MD Consent: Consent obtained: Verbal Consent given by: Patient Risks, benefits, and alternatives were discussed: yes Risks discussed: Infection and pain Alternatives discussed: No treatment and delayed treatment [facility] protocol: Procedure explained and questions answered to patient or proxy's satisfaction: yes Relevant documents present and verified: yes Test results available: no Imaging studies available: no Required blood products, implants, devices, and special equipment available: no Site/side marked: yes Immediately prior to procedure, a time out was called: yes Patient identity confirmed: Verbally with patient Anesthesia: Anesthesia method: Local infiltration Local anesthetic: Lidocaine 1% w/o epi Laceration details: Location: forehead. Length (cm): 2.5 Depth (mm): 2 Pre-procedure details: Preparation: Patient was prepped and draped in usual sterile fashion Exploration: Hemostasis achieved with: Direct pressure Imaging outcome: foreign body not noted Wound extent: no areolar tissue violation noted, no fascia violation noted, no foreign bodies/material noted, no muscle damage noted, no nerve damage noted, no tendon damage noted, no underlying fracture noted and no vascular damage noted Contaminated: no Treatment: Area cleansed with: Chlorhexidine Irrigation solution: Sterile saline Irrigation volume: 5 cc Irrigation method: Pressure wash Visualized foreign bodies/material removed: no Debridement: None Scar revision: no Skin repair: Repair method: Sutures Suture size: 5-0 Suture material: Nylon Suture technique: Simple interrupted Number of sutures: 6 Approximation: Approximation: Close Repair type: Repair type: Simple Post-procedure details: Dressing: Antibiotic ointment Procedure completion: Tolerated Percy Pacheco MD 06/14/22 1322 [facility] 06-14-2022 Note Associated Order(s): Laceration Repair Procedure Laceration Repair Performed by: Percy Pacheco MD Authorized by: Percy Pacheco MD Consent: Consent obtained: Verbal Consent given by: Patient Risks, benefits, and alternatives were discussed: yes Risks discussed: Infection and pain Alternatives discussed: No treatment and delayed treatment [facility] protocol: Procedure explained and questions answered to patient or proxy's satisfaction: yes Relevant documents present and verified: yes Test results available: no Imaging studies available: no Required blood products, implants, devices, and special equipment available: no Site/side marked: yes Immediately prior to procedure, a time out was called: yes Patient identity confirmed: Verbally with patient Anesthesia: Anesthesia method: Local infiltration Local anesthetic: Lidocaine 1% w/o epi Laceration details: Location: forehead. Length (cm): 2.5 Depth (mm): 2 Pre-procedure details: Preparation: Patient was prepped and draped in usual sterile fashion Exploration: Hemostasis achieved with: Direct pressure Imaging outcome: foreign body not noted Wound extent: no areolar tissue violation noted, no fascia violation noted, no foreign bodies/material noted, no muscle damage noted, no nerve damage noted, no tendon damage noted, no underlying fracture noted and no vascular damage noted Contaminated: no Treatment: Area cleansed with: Chlorhexidine Irrigation solution: Sterile saline Irrigation volume: 5 cc Irrigation method: Pressure wash Visualized foreign bodies/material removed: no Debridement: None Scar revision: no Skin repair: Repair method: Sutures Suture size: 5-0 Suture material: Nylon Suture technique: Simple interrupted Number of sutures: 6 Approximation: Approximation: Close Repair type: Repair type: Simple Post-procedure details: Dressing: Antibiotic ointment Procedure completion: Tolerated Percy Pacheco MD 06/14/[address] [facility] 06-14-2022 Miscellaneous Notes Associate d Order(s): Laceration Repair Procedure Laceration Repair Performed by: Percy Pacheco MD Authorized by: Percy Pacheco MD Consent: Consent obtained: Verbal Consent given by: Patient Risks, benefits, and alternatives were discussed: yes Risks discussed: Infection and pain Alternatives discussed: No treatment and delayed treatment [facility] protocol: Procedure explained and questions answered to patient or proxy's satisfaction: yes Relevant documents present and verified: yes Test results available: no Imaging studies available: no Required blood products, implants, devices, and special equipment available: no Site/side marked: yes Immediately prior to procedure, a time out was called: yes Patient identity confirmed: Verbally with patient Anesthesia: Anesthesia method: Local infiltration Local anesthetic: Lidocaine 1% w/o epi Laceration details: Location: forehead. Length (cm): 2.5 Depth (mm): 2 Pre-procedure details: Preparation: Patient was prepped and draped in usual sterile fashion Exploration: Hemostasis achieved with: Direct pressure Imaging outcome: foreign body not noted Wound extent: no areolar tissue violation noted, no fascia violation noted, no foreign bodies/material noted, no muscle damage noted, no nerve damage noted, no tendon damage noted, no underlying fracture noted and no vascular damage noted Contaminated: no Treatment: Area cleansed with: Chlorhexidine Irrigation solution: Sterile saline Irrigation volume: 5 cc Irrigation method: Pressure wash Visualized foreign bodies/material removed: no Debridement: None Scar revision: no Skin repair: Repair method: Sutures Suture size: 5-0 Suture material: Nylon Suture technique: Simple interrupted Number of sutures: 6 Approximation: Approximation: Close Repair type: Repair type: Simple Post-procedure details: Dressing: Antibiotic ointment Procedure completion: Tolerated Percy Pacheco MD 06/14/22 132 documented in this encounter [facility] 06-14-2022 Hospital Discharg e instructions Percy Pacheco MD - 06/14/2022 1:19 PM EDT Suture removal in 3 to 6 days The following attachments cannot be sent through Care Everywhere.Laceration Infection (Wallisian)documented in this encounter [facility] 06-14-2022 Emergency department Note Wound repair by physician with sutures placed. Pt tolerated well. Tatiana Funez RN 06/14/[address] [facility] 06-14-2022 Emergency department Note EMERGENCY DEPARTMENT ENCOUNTER Pt Name: Laith Garcia Birthdate 1960 Date of evaluation: 06/14/2022 ED Provider: Percy Pacheco MD CHIEF COMPLAINT Chief Complaint Patient presents with Laceration HISTORY OF PRESENT ILLNESS (Location/Symptom, Timing/Onset, Context/Setting, Quality, Duration, Modifying Factors, Severity) Note limiting factors. I wore appropriate PPE for the entirety of this encounter. History provided by: Patient historical interpreter used: No Laceration Location: forehead. Length: 2.5 cm Depth: Cutaneous Time since incident: 2 hours Laceration mechanism: Blunt object Pain details: Quality: Aching Severity: Mild Timing: Constant Progression: Unchanged Foreign body present: No foreign bodies Relieved by: Nothing Worsened by: Nothing Ineffective treatments: None tried Tetanus status: Unknown Associated symptoms: no fever, no focal weakness, no numbness, no rash, no redness, no swelling and no streaking Laith Garcia is a 61 y.o. male who presents to the emergency department with chief complaint of laceration of forehead Nursing Notes were reviewed. Limitations to history: None Outside historians: None REVIEW OF SYSTEMS Review of Systems Constitutional: Negative for fever. Skin: Positive for wound. Negative for rash. Wound of forehead Neurological: Negative for focal weakness. All other systems reviewed and are negative. Pertinent positives and negatives as per HPI. PAST MEDICAL HISTORY Past Medical History: Diagnosis Date Deviated nasal septum Right inguinal hernia SCHEDULED FOR THE SURGERY TO-DAY I.E 09/30/2016 Shingles Smoker SMOKER'S COUGH SURGICAL HISTORY Past Surgical History: Procedure Laterality Date ANTERIOR CRUCIATE LIGAMENT REPAIR Right HERNIA REPAIR 09/30/2016 [facility] NASAL SEPTUM SURGERY WISDOM TOOTH EXTRACTION CURRENT MEDICATIONS Previous Medications No medications on file ALLERGIES Patient has no known allergies. FAMILY HISTORY Family History Problem Relation Name Age of Onset Heart disease Father Arthritis Father SOCIAL HISTORY Social History Socioeconomic History Marital status: Tobacco Use Smoking status: Every Day Packs/day: 1.00 Types: Cigarettes Smokeless tobacco: Never Tobacco comments: Quit smoking: LONG TIME Substance and Sexual Activity Alcohol use: Yes Drug use: No SCREENINGS PHYSICAL EXAM ED Triage Vitals [06/14/22 1235] Temp Heart Rate Resp BP 36.6 C (97.9 F) 74 16 (!) 149/100 SpO2 Temp Source Heart Rate Source Patient Position 97 % Oral -- Sitting BP Location FiO2 (%) Right arm -- Physical Exam Vitals and nursing note reviewed. Exam conducted with a horse breaker present. Constitutional: General: He is not in acute distress. Appearance: Normal appearance. He is normal weight. He is not ill-appearing, toxic-appearing or diaphoretic. HENT: Head: Normocephalic and atraumatic. Right Ear: Tympanic membrane, ear canal and external ear normal. Left Ear: Tympanic membrane, ear canal and external ear normal. Nose: Nose normal. Mouth/Throat: Mouth: Mucous membranes are moist. Pharynx: Oropharynx is clear. No oropharyngeal exudate or posterior oropharyngeal erythema. Eyes: Extraocular Movements: Extraocular movements intact. Conjunctiva/sclera: Conjunctivae normal. Pupils: Pupils are equal, round, and reactive to light. Cardiovascular: Rate and Rhythm: Normal rate and regular rhythm. Pulses: Normal pulses. Heart sounds: Normal heart sounds. Pulmonary: Effort: Pulmonary effort is normal. Breath sounds: Normal breath sounds. Abdominal: General: Abdomen is flat. Bowel sounds are normal. Palpations: Abdomen is soft. Musculoskeletal: General: Normal range of motion. Cervical back: Normal range of motion and neck supple. Skin: General: Skin is warm. Capillary Refill: Capillary refill takes less than 2 seconds. Coloration: Skin is not jaundiced or pale. Findings: No bruising, erythema, lesion or rash. Comments: 2.5 cm laceration of mid forehead Neurological: General: No focal deficit present. Mental Status: He is alert and oriented to person, place, and time. Mental status is at baseline. Cranial Nerves: No cranial nerve deficit. Sensory: No sensory deficit. Motor: No weakness. Coordination: Coordination normal. Gait: Gait normal. Deep Tendon Reflexes: Reflexes normal. Psychiatric: Mood and Affect: Mood normal. Behavior: Behavior normal. Thought Content: Thought content normal. Judgment: Judgment normal. DIAGNOSTIC RESULTS Procedures/EKG: EKG was reviewed by myself. [facility] RAD[facility]OLOGY (Per Emergency Physician): Interpretation per the Radiologist below, if available at the time of this note: No orders to display ED BEDSIDE ULTRASOUND: Performed by ED Physician - none LABS: Labs Reviewed - No data to display All other labs were within normal range or not returned as of this dictation. EMERGENCY DEPARTMENT COURSE and DIFFERENTIAL DIAGNOSIS/MDM: Vitals: Vitals: 06/14/22 1235 BP: (!) 149/100 BP Location: Right arm Patient Position: Sitting Pulse: 74 Resp: 16 Temp: 36.6 C (97.9 F) TempSrc: Oral SpO2: 97% Weight: 81.6 kg (180 lb) Height: 1.676 m (5' 6) Patient is here for a forehead laceration which occurred 2 hours ago at work. He noted a piece of barbi his his forehead. He did not have any LOC and is not having any neck pain. He does not know when his last tetanus was. He noted he was not on blood thinning medications. On exam, he was nontoxic in appearance. No midline cervical tenderness was noted. Gcs was 15. He did have 2.5 cm laceration of mid forehead. I did not think ct of the head was indicated. Patient had no LOC and was not nauseous after incident. Wound was sutured . He was advised on suture removal in 3 to 5 days. Tetanus was updated. Final diagnosis was forehead laceration. Patient was discharged Diagnoses as of 06/14/22 1320 Laceration of forehead, initial encounter Medications lidocaine (Xylocaine) 1 % injection 10 mL (has no administration in time range) Tdap (BoostRIX) vaccine 0.5 mL (has no administration in time range) lidocaine PF (Xylocaine) 1 % injection - Pyxis ADS Override Pull (has no administration in time range) bacitracin ointment (has no administration in time range) REVAL: CRITICAL CARE TIME None CONSULTS: None PROCEDURES: Unless otherwise noted below, none Procedures FINAL IMPRESSION 1. Laceration of forehead, initial encounter DISPOSITION Discharge 06/14/2022 01:19:14 PM [facility] DISCHARGE MEDICATIONS: New Prescriptions No medications on file (Comment: Please note this report has been produced using speech recognition software and may contain errors related to that system including errors in grammar, punctuation, and spelling, as well as words and phrases that may be inappropriate. If there are any questions or concerns please feel free to contact the dictating provider for clarification.) Percy Pacheco MD (electronically signed) Emergency Medicine Provider Percy Pacheco MD 06/14/22 1321 Percy Pacheco MD 06/14/22 1336 Pt ambulatory to room 7 with approx 3.5cm head laceration to forehead. Bleeding is controlled at time of arrival. Last tetanus unknown Wound repair by physician with sutures placed. Pt tolerated well. Tatiana Funez RN 06/14/22 1348 documented in this encounter [facility] 06-14-2022 Emergency department Triage note Pt ambulatory to room 7 with approx 3.5cm head laceration to forehead. Bleeding is controlled at time of arrival. Last tetanus unknown [facility] 06-14-2022 Physician Emergen cy department Note EMERGENCY DEPARTMENT ENCOUNTER Pt Name: Laith Garcia Birthdate 1960 Date of evaluation: 06/14/2022 ED Provider: Percy Pacheco MD CHIEF COMPLAINT Chief Complaint Patient presents with Laceration HISTORY OF PRESENT ILLNESS (Location/Symptom, Timing/Onset, Context/Setting, Quality, Duration, Modifying Factors, Severity) Note limiting factors. I wore appropriate PPE for the entirety of this encounter. History provided by: Patient historical interpreter used: No Laceration Location: forehead. Length: 2.5 cm Depth: Cutaneous Time since incident: 2 hours Laceration mechanism: Blunt object Pain details: Quality: Aching Severity: Mild Timing: Constant Progression: Unchanged Foreign body present: No foreign bodies Relieved by: Nothing Worsened by: Nothing Ineffective treatments: None tried Tetanus status: Unknown Associated symptoms: no fever, no focal weakness, no numbness, no rash, no redness, no swelling and no streaking Laith Kelly Mavis is a 61 y.o. male who presents to the emergency department with chief complaint of laceration of forehead Nursing Notes were reviewed. Limitations to history: None Outside historians: None REVIEW OF SYSTEMS Review of Systems Constitutional: Negative for fever. Skin: Positive for wound. Negative for rash. Wound of forehead Neurological: Negative for focal weakness. All other systems reviewed and are negative. Pertinent positives and negatives as per HPI. PAST MEDICAL HISTORY Past Medical History: Diagnosis Date Deviated nasal septum Right inguinal hernia SCHEDULED FOR THE SURGERY TO-DAY I.E 09/30/2016 Shingles Smoker SMOKER'S COUGH SURGICAL HISTORY Past Surgical History: Procedure Laterality Date ANTERIOR CRUCIATE LIGAMENT REPAIR Right HERNIA REPAIR 09/30/2016 [facility] NASAL SEPTUM SURGERY WISDOM TOOTH EXTRACTION CURRENT MEDICATIONS Previous Medications No medications on file ALLERGIES Patient has no known allergies. FAMILY HISTORY Family History Problem Relation Name Age of Onset Heart disease Father Arthritis Father SOCIAL HISTORY Social History Socioeconomic History Marital status: Tobacco Use Smoking status: Every Day Packs/day: 1.00 Types: Cigarettes Smokeless tobacco: Never Tobacco comments: Quit smoking: LONG TIME Substance and Sexual Activity Alcohol use: Yes Drug use: No SCREENINGS PHYSICAL EXAM ED Triage Vitals [06/14/22 1235] Temp Heart Rate Resp BP 36.6 C (97.9 F) 74 16 (!) 149/100 SpO2 Temp Source Heart Rate Source Patient Position 97 % Oral -- Sitting BP Location FiO2 (%) Right arm -- Physical Exam Vitals and nursing note reviewed. Exam conducted with a horse breaker present. Constitutional: General: He is not in acute distress. Appearance: Normal appearance. He is normal weight. He is not ill-appearing, toxic-appearing or diaphoretic. HENT: Head: Normocephalic and atraumatic. Right Ear: Tympanic membrane, ear canal and external ear normal. Left Ear: Tympanic membrane, ear canal and external ear normal. Nose: Nose normal. Mouth/Throat: Mouth: Mucous membranes are moist. Pharynx: Oropharynx is clear. No oropharyngeal exudate or posterior oropharyngeal erythema. Eyes: Extraocular Movements: Extraocular movements intact. Conjunctiva/sclera: Conjunctivae normal. Pupils: Pupils are equal, round, and reactive to light. Cardiovascular: Rate and Rhythm: Normal rate and regular rhythm. Pulses: Normal pulses. Heart sounds: Normal heart sounds. Pulmonary: Effort: Pulmonary effort is normal. Breath sounds: Normal breath sounds. Abdominal: General: Abdomen is flat. Bowel sounds are normal. Palpations: Abdomen is soft. Musculoskeletal: General: Normal range of motion. Cervical back: Normal range of motion and neck supple. Skin: General: Skin is warm. Capillary Refill: Capillary refill takes less than 2 seconds. Coloration: Skin is not jaundiced or pale. Findings: No bruising, erythema, lesion or rash. Comments: 2.5 cm laceration of mid forehead Neurological: General: No focal deficit present. Mental Status: He is alert and oriented to person, place, and time. Mental status is at baseline. Cranial Nerves: No cranial nerve deficit. Sensory: No sensory deficit. Motor: No weakness. Coordination: Coordination normal. Gait: Gait normal. Deep Tendon Reflexes: Reflexes normal. Psychiatric: Mood and Affect: Mood normal. Behavior: Behavior normal. Thought Content: Thought content normal. Judgment: Judgment normal. DIAGNOSTIC RESULTS Procedures/EKG: EKG was reviewed by myself. Physician EKG interpretation can be found in [facility] RADIOLOGY (Per Emergency Physician): Interpretation per the Radiologist below, if available at the time of this note: No orders to display ED BEDSIDE ULTRASOUND: Performed by ED Physician - none LABS: Labs Reviewed - No data to display All other labs were within normal range or not returned as of this dictation. EMERGENCY DEPARTMENT COURSE and DIFFERENTIAL DIAGNOSIS/MDM: Vitals: Vitals: 06/14/22 1235 BP: (!) 149/100 BP Location: Right arm Patient Position: Sitting Pulse: 74 Resp: 16 Temp: 36.6 C (97.9 F) TempSrc: Oral SpO2: 97% Weight: 81.6 kg (180 lb) Height: 1.676 m (5' 6) Patient is here for a forehead laceration which occurred 2 hours ago at work. He noted a piece of barbi his his forehead. He did not have any LOC and is not having any neck pain. He does not know when his last tetanus was. He noted he was not on blood thinning medications. On exam, he was nontoxic in appearance. No midline cervical tenderness was noted. Gcs was 15. He did have 2.5 cm laceration of mid forehead. I did not think ct of the head was indicated. Patient had no LOC and was not nauseous after incident. Wound was sutured . He was advised on suture removal in 3 to 5 days. Tetanus was updated. Final diagnosis was forehead laceration. Patient was discharged Diagnoses as of 06/14/22 1320 Laceration of forehead, initial encounter Medications lidocaine (Xylocaine) 1 % injection 10 mL (has no administration in time range) Tdap (BoostRIX) vaccine 0.5 mL (has no administration in time range) lidocaine PF (Xylocaine) 1 % injection - Pyxis ADS Override Pull (has no administration in time range) bacitracin ointment (has no administration in time range) REVAL: CRITICAL CARE TIME None CONSULTS: None PROCEDURES: Unless otherwise noted below, none Procedures FINAL IMPRESSION 1. Laceration of forehead, initial encounter DISPOSITION Discharge 06/14/2022 01:19:14 PM PATIENT REFERRED TO: [facility] Call in 1 day DISCHARGE MEDICATIONS: New Prescriptions No medications on file (Comment: Please note this report has been produced using speech recognition software and may contain errors related to that system including errors in grammar, punctuation, and spelling, as well as words and phrases that may be inappropriate. If there are any questions or concerns please feel free to contact the dictating provider for clarification.) Percy Pacheco MD (electronically signed) Emergency Medicine Provider Percy Pacheco MD 06/14/22 1321 Percy Pacheco MD 06/14/22 1336 [employer] Work Phone: Evaluation note Diagnosis Laceration of forehead, initial encounter- Primary documented in this encounter [facility]* Diagnosis Annual physical exam- Primary Routine general medical examination at a health care facility Benign prostatic hyperplasia with urinary retention Urinary retention due to benign prostatic hyperplasia Screening for diabetes mellitus Screening for lipid disorders documented in this encounter [facility] Summary Purpose Family History No Family History Records FoundNo Family History Records FoundNo Family History Records Found Advance Directives No Advanced Directives Records FoundNo Advanced Directives Records FoundNo Advanced Directives Records Found Additional Source Comments (unrecognized sect ion and content) No Status Records FoundNo Status Records FoundNo Status Records Found INFORMATION SOURCE (unrecogn ized section and content) DATE CREATED AUTHOR 08/01/2017 [employer] DATE CREATED AUTHOR AUTHOR'S ORGANIZ ATION 03/16/2024 [facility] DATE CREATED AUTHOR AUTHOR'S ORGANIZ ATION 09/27/2024 [facility] [employer] [facility] Reason for Visit (unrecogniz ed section and content) Reason Comments Laceration Reason Comments ER Follow-up In [place]-09/14/24 and 09/16/24 Urinary Retention Still have catheter Saw urology this morning - Dr Maxime Aguayo has testing scheduled Scheduled Active and Recently Administ ered Medications (unrecognized section and content) Medication Order 06/12/2022 06/13/2022 06/14/2022 bacitracin ointment (COMPLETED) Topical, Once, On e 06/14/22 at 1325, For 1 dose 1325 (Given - Provid er: Tatiana Funez RN) lidocaine (Xylocaine) 1 % injection 10 mL (COMPLETED) 10 mL, Infiltration, Once, On e 06/14/22 at 1305, For 1 dose 1305 (Given - Provid er: Tatiana Funez RN) Care Teams (unrecognized sec tion and content) 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 Relationship Specialty Start Date End Date Elisabet Garcia MD [address] [place] [address], [place] [address] PCP - General 06/03/15 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 Relationship Specialty Start Date End Date Elisabet Garcia MD [address] [facility] [place] [address] PCP - General 06/03/15 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 Relationship Specialty Start Date End Date Elisabet Garcia MD [address] [facility] [place] [address] PCP - General 06/03/15 Maxime Aguayo MD [address] [facility] [address] [place] [address] Urology 09/24/24 FOR RECORDS PERTAINING TO PATIENTS WHO ARE OR HAVE BEEN ENROLLED IN A CHEMICAL DEPENDENCY/SUBSTANCEABUSE PROGRAM, SOME INFORMATION MAY BE OMITTED. This clinical summary was aggregated from multiple sources. Caution should be exercised in using it in the provision of clinical care. This summary normalizes information from multiple sources, and as a consequence, information in this document may materially change the coding, format and clinical context of patient data. In addition, data may be omitted in some cases. CLINICAL DECISIONS SHOULD BE BASED ON THE PRIMARY CLINICAL RECORDS. [facility] [employer] [facility]. provides no warranty or guarantee of the accuracy or completeness of information in this document.
== END 2024-09-27 20:37 | disposition left against medical advice (07) ==
LOC: ED 20:58
DX: Z00.00 Encounter for general adult medical examination without abnormal findings (principal)

== ENCOUNTER 2024-09-28 20:54 | Emergency (ER) | payer OTHER, SELFPAY ==
[2024-09-28 20:55] VITALS: BP 143/94; PULSE 92; RESP 18; TEMP 36.3; O2SAT 98; BMI 28.4
--- OUTSIDE RECORDS SUMMARY | 2024-09-28 22:43 | XMS RPT_ITS | CCD ---
Author Organization [facility] CliniSys[facility] Care Team Providers Care [employer] Roughneck Name Role Phone Stephanie Schwartz Unavailable Unavailable PROVIDER, UNKNOWN Unavailable Unavailable Elisabet Garcia Unavailable Unavailable Panda, Andreea Unavailable Unavailable PROVIDER, UNKNOWN Unavailable Unavailable Elisabet Garcia Unavailable Unavailable Elisabet Garcia MD Primary Care Provider Elisabet Garcia MD Primary Care Provider Assessment, Health Risk Attending Unavaila ble Care Physician, No Primary Primary Care Unava ilable Maxime Aguayo MD Unavailable [phone] ELISABET GARCIA Attending Unavailable ELISABET GARCIA Primary Care Unavailable ELISABET GARCIA Primary Care Unavailable MAXIME AGUAYO Attending Unavailable ELISABET GARCIA Primary Care Unavailable Care Physician, No Primary Primary Care Provider Unavailable Provider, Ed Physician Emergency Provider Unavai lable Medications Current Medications Medication Drug Class(es) Dates [...] patient as written. Elisabet Garcia MD to [facility] Alicia Clinical Arboriculturist 09/25/24 5:48 AM Result Note Blood sugar [...] to the patient from encounter: Yes Normal [facility] Office Visiton 09-24-2024 Follow-up visit [id number] Dot Garcia 1960 M Date Provider Department Center 09/24/2024 [id number] GARCIALisbeth SOTO [facility] Family History Problem Relation Age of Onset Heart disease Father Arthritis Father Family Status - Relation Status Age at Father Alive Level of Service:36283 [place] INITIAL PREVENTIVE MEDICINE NEW PATIENT 40-64YRS Reason for Visit and Comments: ER Follow-up [831] - In [place]-09/14/24 and 09/16/24 Urinary Retention [237705] - Still have catheter Saw urology this morning - Dr Maxime Aguayo has testing scheduled Normal [facility] Follow-up visit [id number] Dot Garcia 1960 M Date Provider Department Center 09/24/2024 [id number] AGUAYOLisbeth URO BAR None Family History Problem Relation Age of Onset Heart disease Father Arthritis Father Family Status - Relation Status Age at Father Alive Level of Service:04254 [place] OFFICE/OUTPATIENT NEW MODERATE MDM 45 MINUTES Reason for Visit and Comments: Urinary Retention [800289] - Patient was in hospital in [place] due to urinary retention. Catheter was placed and failed voiding trial before traveling home. He failed voiding trial again yesterday 09/23/24 and catheter replaced. Currently has bloody urine draining from catheter. Normal [facility] Progress Noteon 09-24-2024 Progress Note Significant, he is currently on Flomax and has an indwelling catheter from urology. He is scheduled for a cystoscopy in 2 weeks. Normal [facility] Progress Note Significant, he is currently on Flomax and has an indwelling catheter from urology. He is scheduled for a cystoscopy in 2 weeks. Normal [facility] Progress Note 09/24/2024 Laith Gacria (: 1960) is a 64 y.o. male , Established patient, here for evaluation of the following chief complaint(s): ER Follow-up (In [place]-09/14/24 and 09/16/24) and Urinary Retention (Still have [...] about 1 year (around 09/24/2025). SUBJECTIVE/OBJECTIVE: GERI Lori comes in today to establish as a new patient, he was on vacation in [place] and ended up with urinary retention and [...] note. Elisabet Garcia MD 09/24/2024 3:49 PM [facility] Progress Note Patient verified by last name and date of . Normal [facility] Progress Note Patient identified b y name and date of .After obtaining consent, and per orders of Elisabet Garcia MD, injection of Prevnar 20 given in the left deltoid by Michelle Wells. Patient instructed to report any adverse reactions immediately. Normal [facility] Progress Note Maxime Aguayo MD 09/24/2024 at 10:14 AM UROLOGY INITIAL OFFICE VISIT PATIENT NAME: Laith Garcia DATE OF : 1960 TODAY'S DATE: 09/24/2024 Chief Complaint: Chief Complaint Patient presents with Urinary Retention Patient was in hospital in [place] due to urinary retention. Catheter was placed and failed voiding trial before traveling home. He failed voiding trial again yesterday 09/23/24 and catheter replaced. Currently has bloody urine draining from catheter. HISTORY OF PRESENT ILLNESS: Mr. Garcia is a 64 y.o. male who presents with urinary retention I just shut down when I was in [place] Didn't make it to the hospital until next morning Catheter placed for 1.5L Never had a retention episode prior to this Took 3 tries to get the catheter working correctly Tried to get it removed on 09/16 but couldn't urinate They started him on flomax in [place] Before AUR episode, stream was weakening, increased [...] daily. Went into urinary retention while in [place] on fishing trip on 09/13/24 Catheter was [...] CRUCIATE LIGAMENT REPAIR Right HERNIA REPAIR 09/30/2016 [facility] NASAL SEPTUM SURGERY WISDOM TOOTH EXTRACTION [3] [...] min Stress: No Stress Concern Present (09/21/2024) [employer] - Occupational Stress Questionnaire Feeling of Stress : Only a little Social Connections: Moderately Integrated (09/21/2024) Social Connection and Isolation (more content not included)... Normal [facility] 36on 09-23-2024 36 No answer - pt sched for appt 09/[address] Garcia at 2:15 . Arrive 15 min prior and bring insurance card, and ID Bring in all medication Normal [facility] Progress Noteon 09-23-2024 Progress Note We want to inform yo u that your patient's blood pressure was noted to be elevated in our office today. We thank you for trusting us with your patient's health. Last BP: BP Readings from Last 1 Encounters: 09/23/24 1016 (!) 153/77 09/23/24 1009 (!) 157/84 Normal [facility] Progress Note [facility] UROLOGY [address], [address] [facility] [id number] Urology Nursing Visit PATIENT NAME: Laith Garcia DATE OF : 1960 TODAY'S DATE: 09/23/2024 Patient presents today for indwelling arnold catheter removal and trial of voiding. Patient presents for arnold catheter removal and trial of voiding after episode of urinary retention. Patient is currently on Tamsulosin (Flomax). Allergies[1] Procedure: The existing 16 macedonian coud? tip catheter was instilled with 250 mL of sterile water into the urinary bladder. The catheter balloon was deflated, removing 10 mL of fluid. The catheter was clamped and then removed without difficulty. The patient was unable to void immediately. Patient tolerated well. UROJET 6 ML [facility] [id number] LOT # [id number] EXPIRES 08/2026 Administered by WD Pt tolerated well PLAN: Patient was unable to void with cath removal today. 16 Khmer coud? tip catheter replaced. Will plan for [...] to urinate. [1] No Known Allergies Normal [facility] Comprehensive Metabolic Prof [facility] 03-14-2024 Albumin [Mass/Vol] 3.6 g/dL Normal 3.2-5.0 [facility] Comment on above: Performed By: #### L 500.4050, L500.4100 #### [facility] [address] [place], [address] Albumin/Globulin [Mass ratio] 1.0 {ratio} Normal 0.9-2.4 [facility] Comment on above: Performed By: #### L 500.4050, L500.4100 #### [facility] [address] [place], [address] ALK P 79 U/L Normal 45-117 [facility] Comment on above: Performed By: #### L 500.4050, L500.4100 #### [facility] [address] [place], [address] ALT [Catalytic activity/Vol] 33 U/L Normal 16-61 [facility] Comment on above: Performed By: #### L 500.4050, L500.4100 #### [facility] [address] [place], [address] AST [Catalytic activity/Vol] 23 U/L Normal 15-37 [facility] Comment on above: Performed By: #### L 500.4050, L500.4100 #### [facility] [address] [place], [address] Bilirubin [Mass/Vol] 0.50 mg/dL Normal 0.20-1.00 [facility] Comment on above: Result Comment: For patients on eltrombopag therapy, use of Dimension [place] TBIL is not recommended. Performed By: #### L 500.4050, L500.4100 #### [facility] [address] [place], [address] BUN/CRE 13.3 RATIO Normal 10-20 [facility] Comment on above: Performed By: #### L 500.4050, L500.4100 #### [facility] [address] [place], [address] CA,Total 9.1 mg/dL Normal 8.5-10.1 [facility] Comment on above: Performed By: #### L 500.4050, L500.4100 #### [facility] [address] [place], [address] Chloride [Moles/Vol] 106 mmol/L Normal 98-107 [facility] Comment on above: Performed By: #### L 500.4050, L500.4100 #### [facility] [address] [place], [address] CO2 [Moles/Vol] 25.0 mmol/L Normal 21.0-32.0 [facility] Comment on above: Performed By: #### L 500.4050, L500.4100 #### [facility] [address] [place], [address] Creatinine [Mass/Vol] 1.13 mg/dL Normal 0.70-1.30 [facility] Comment on above: Result Comment: The validity of the calculated GFR GFRAA in patients over 70 years has not been determined. Clinical correlation is essential. Performed By: #### L 500.4050, L500.4100 #### [facility] [address] [place], [address] EST GFR - AA 85 mL/min Normal >60 [facility] Comment on above: Result Comment: Afri can Jamaican GFR Calc Performed By: #### L 500.4050, L500.4100 #### [facility] [address] [place], [address] GAP 7 Normal 5-15 [facility] Comment on above: Performed By: #### L 500.4050, L500.4100 #### [facility] [address] [place], [address] GFR/1.73 sq M.predicted among non-blacks MDRD (S/P/Bld) [Vol rate/Area] 70 mL/min/{1.73_m2} Normal >60 [facility] Comment on above: Result Comment: Non- GFR Calc Performed By: #### L 500.4050, L500.4100 #### [facility] [address] [place], [address] Globulin (S) [Mass/Vol] 3.7 g/dL Normal 2.2-4.2 [facility] Comment on above: Performed By: #### L 500.4050, L500.4100 #### [facility] [address] [place], [address] Glucose [Mass/Vol] 116 mg/dL High 74-106 [facility] Comment on above: Result Comment: Fast ing Glucose result from 100 to 125 mg/dL suggests IMPAIRED HOMEOSTASIS per A.D.A. criteria. Performed By: #### L 500.4050, L500.4100 #### [facility] [address] [place], [address] Potassium [Moles/Vol] 4.3 mmol/L Normal 3.5-5.1 [facility] Comment on above: Performed By: #### L 500.4050, L500.4100 #### [facility] [address] [place], [address] Sodium [Moles/Vol] 138 mmol/L Normal 136-145 [facility] Comment on above: Performed By: #### L 500.4050, L500.4100 #### [facility] [address] [place], [address] T PROT 7.3 g/dL Normal 6.4-8.2 [facility] Comment on above: Performed By: #### L 500.4050, L500.4100 #### [facility] [address] [place], [address] Urea nitrogen [Mass/Vol] 15 mg/dL Normal 7-18 [facility] Comment on above: Performed By: #### L 500.4050, L500.4100 #### [facility] [address] [place], [address] Lipid Profileon 03-14-2024 Cholesterol [Mass/Vol] 193 mg/dL Normal 200 [facility] Comment on above: Result Comment: <200 mg/dL Desirable 200-240 mg/dL Borderline >240 mg/dL High Risk Performed By: #### L 500.4050, L500.4100 #### [facility] [address] [place], [address] Cholesterol in HDL [Mass/Vol] 44 mg/dL Normal [facility] Comment on above: Result Comment: The drugs N-Acetylcysteine and Metamizole may falsely depress this assay. Reference Range HDL <40 mg/dL Low HDL Cholesterol HDL >or= 60 mg/dL High HDL Cholesterol Performed By: #### L 500.4050, L500.4100 #### [facility] [address] [place], [address] Cholesterol in LDL [Mass/Vol] 116 mg/dL Normal 0-130 [facility] Comment on above: Performed By: #### L 500.4050, L500.4100 #### [facility] [address] [place], [address] Cholesterol in VLDL [Mass/Vol] 33 mg/dL Normal 5-40 [facility] Comment on above: Performed By: #### L 500.4050, L500.4100 #### [facility] [address] [place], [address] Triglyceride [Mass/Vol] 165 mg/dL Normal [facility] Comment on above: Result Comment: The drugs N-Acetylcysteine and Metamizole may falsely depress this assay. Serum Triglycerides Reference Interval Normal <150 mg/dL Borderline high 150 - 199 mg/dL High 200 - 499 mg/dL Very High > or = 500 mg/dL Performed By: #### L 500.4050, L500.4100 #### [facility] [address] [place], [address] No Panel Informationon 06-14 Percy Pacheco MD 06/14/2022 1:22 PM Laceration Repair Performed by: Percy Pacheco MD Authorized by: Percy Pacheco MD Consent: Consent obtained: Verbal Consent given by: Patient Risks, benefits, and alternatives were discussed: yes Risks discussed: Infection and pain Alternatives discussed: No treatment and delayed treatment [place] protocol: Procedure explained and questions answered to [...] details: Dressing: Antibiotic ointment Procedure completion: Tolerated [facility] CR Knee 3 Views Righton 07-14 CR Knee 3 Views Right Patient Name: LAITH GARCIA Diagnostic Radiology Exam Date/Time 07/26/2017 10:47:03 EDT Exam CR Knee 3 Views Right Ordering Physician MD MOSQUEDA CATHERINE Accession Number [id number] CPT4 Codes 87278 () Reason For Exam pain of right knee Report Examination: Right knee three views Indication: pain of right knee Findings: No acute fracture or dislocation is noted. Moderate medial compartment joint space loss is present with small osteophytes. The soft tissues are grossly unremarkable. Impression: No acute osseous abnormality. Medial compartment osteoarthritis. Report Dictated on DENTIST Final Dictating Physician: TINO JARQUIN Signed Date and Time: 07/26/2017 11:11 am Signed by: TINO JARQUIN Transcribed Date and Time: 07/26/2017 11:12 [facility] CR Spine Lumbosacral 4+ View son 07-26-2017 CR Spine Lumbosacral 4+ Views Patient Name: LAITH GARCIA Diagnostic Radiology Exam Date/Time 07/26/2017 10:47:03 EDT Exam CR Spine Lumbosacral 4+ Views Ordering Physician MD MOSQUEDA CATHERINE Accession Number [id number] CPT4 Codes 48144 () Reason For Exam low back pain [...] Transcribed Date and Time: 07/26/2017 2:56 Normal [facility] US Venous Extremity RT lower on 07-26-2017 US Venous Extremity RT lower Patient Name: LAITH GARCIA Ultrasound Exam Date/Time 07/26/2017 10:34:56 EDT Exam US Venous Extremity RT lower Ordering Physician MD MOSQUEDA CATHERINE Accession Number [id number] CPT4 Codes 91692 (US Venous Extremity RT lower) Reason For [...] Transcribed Date and Time: 07/26/2017 10:35 Normal [facility] Surgical Pathologyon 017 Surgical Pathology [id number] [facility] PATHOLOGY AND [facility]ORATORY MEDICINE [address] [place] [address] Fax - FINAL SURGICAL PATHOLOGY REPORT NAME: LAITH GARCIA .O.B.: 1960 56 Y Andrae PEDERSEN NO.: [id number]: BSDSO SDS 04 PROCEDURE 09/30/2016 DATE:SURGEON: STEPHANIE SCHWARTZ M.D. RECEIVED 10/03/2016 DATE:ATTENDING: STEPHANIE SCHWARTZ M.D. REPORT DATE: 10/04/2016 COPIES TO: DIA GNOSIS:RIGHT CREMASTER, EXCISION - NON-INFLAMED ADIPOSE TISSUE AND SKELETALMUSCLEIGNACIA/DEEPALI ABBOTT M.D. CL INICAL INFORMATION: Right inguinal [...] theirperformance characteristics determined by the clinical laboratories [facility]. They have not been cleared by the [...] false negativity on decalcified specimens.Case reviewed at [place] [address] [facility] [place]. DEPARTMENT OF PATHOLOGY AND LABORATORY MEDICINE [place], [place] [address] Normal [facility] Comment on above: Performed By: #### S UR ####Performing Lab is in report Vital Signs Date Time Vital Sign Value Performing Clinician Anil longoria 09-27-2024 20:03-0400 Body height 167.64 cm No Primary Care Physician [facility] 09-27-2024 20:03-0400 Body mass index (BMI) [Ratio] 29 kg/m2 No Primary Care Physician [facility] 09-27-2024 20:03-0400 Body temperature 98.2 [degF] No Primary Care Physician [facility] 09-27-2024 20:03-0400 Body weight 81.73 kg No Primary Care Physician [facility] 09-27-2024 20:03-0400 Diastolic blood pressure 79 mm[Hg] No Primary Care Physician [facility] 09-27-2024 20:03-0400 Heart rate 92 /min No Primary Care Physician [facility] 09-27-2024 20:03-0400 Respiratory rate 16 /min No Primary Care Physician [facility] 09-27-2024 20:03-0400 SaO2% (BldA) [Mass fraction] 98 % No Primary Care Physician [facility] 09-27-2024 20:03-0400 Systolic blood pressure 129 mm[Hg] No Primary Care Physician [facility] 09-24-2024 14:01-0400 Body height 167.6 cm Elisabet Garcia MD Work Phone: [facility] 09-24-2024 14:01-0400 Body mass index (BMI) [Ratio] 28.5 kg/m2 Eliasbet Garcia MD Work Phone: [facility] 09-24-2024 14:01-0400 Body weight 80.11 kg Elisabet Garcia MD Work Phone: [facility] 09-24-2024 14:01-0400 Diastolic blood pressure 78 mm[Hg] Elisabet Garcia MD Work Phone: [facility] 09-24-2024 14:01-0400 Heart rate 73 /min Elisabet Garcia MD Work Phone: [facility] 09-24-2024 14:01-0400 SaO2% (BldA) [Mass fraction] 98 % Elisabet Garcia MD Work Phone: [facility] 09-24-2024 14:01-0400 Systolic blood pressure 134 mm[Hg] Elisabet Garcia MD Work Phone: [facility] 06-14-2022 12:35-0400 Body height 167.6 cm Percy Pacheco MD Work Phone: [facility] 06-14-2022 12:35-0400 Body mass index (BMI) [Ratio] 29.05 kg/m2 Percy Pacheco MD Work Phone: [facility] 06-14-2022 12:35-0400 Body temperature 97.9 [degF] Percy Pacheco MD Work Phone: [facility] 06-14-2022 12:35-0400 Body weight 81.65 kg Percy Pacheco MD Work Phone: [facility] 06-14-2022 12:35-0400 Diastolic blood pressure 100 mm[Hg] Percy Pacheco MD Work Phone: [facility] 06-14-2022 12:35-0400 Heart rate 74 /min Percy Pacheco MD Work Phone: [facility] 06-14-2022 12:35-0400 Respiratory rate 16 /min Percy Pacheco MD Work Phone: [facility] 06-14-2022 12:35-0400 SaO2% (BldA) [Mass fraction] 97 % Percy Pacheco MD Work Phone: [facility] 06-14-2022 12:35-0400 Systolic blood pressure 149 mm[Hg] Percy Pacheco MD Work Phone: [facility] Encounters Encounter Date Encounter Type Care Provider Facility Start: 09-27-2024 End: 09-27-2024 Emergency department patient visit No Primary Care Physician -Emergency Department Work Phone: Start: 09-24-2024 End: 09-24-2024 Initial preventive medicine new patient 40-64yrs Elisabet Garcia MD Work Phone: [facility] Comment on above: Annual physical exam (Primary Dx); Benign prostatic hyperplasia with urinary retention; Urinary retention due to benign prostatic hyperplasia; Screening for diabetes mellitus; Screening for lipid disorders Start: 09-24-2024 End: 09-24-2024 Patient encounter procedure Elisabet Garcia MD Work Phone: [facility] Work Phone: Start: 09-24-2024 End: 09-24-2024 ambulatory [facility] Start: 09-24-2024 End: 09-24-2024 Encounter for general adult medical examination without abnormal findings [facility] Start: 09-24-2024 End: 09-24-2024 ambulatory MAXIME AGUAYO [facility] Start: 09-23-2024 End: 09-23-2024 ambulatory [facility] Start: 03-14-2024 ambulatory Health Risk Assessment Facility:[facility] Start: 03-04-2024 End: 03-04-2024 Orders Only Elisabet Garcia MD Work Phone: [facility] Start: 06-14-2022 End: 06-14-2022 Emergency department patient visit Percy Pacheco MD Work Phone: [facility] Comment on above: Laceration of forehe ad, initial encounter (Primary Dx) Start: 07-26-2017 Ambulatory Andreea Mosqueda [facility] Start: 09-30-2016 Ambulatory Stephanie Schwartz [facility] Procedures Date Procedure Procedure Detail Performing Clinician Start: 09-21-2024 Adult depression scr eening assessment Elisabet Garcia MD Work Phone: Start: 06-14-2022 PB ED PLACEHOLDER Percy Pacheco MD Work Phone: Plan of Treatment Date Care Activity Detail Author Start: 2037 RSV Immunization for Adults (1 - 1-dose 75+ series) RSV Immunization for Adults (1 - 1-dose 75+ series) [facility] Start: 06-14-2032 DTaP/Tdap/Td Vaccine s (2 - Td or Tdap) DTaP/Tdap/Td Vaccines (2 - Td or Tdap) [facility] Start: 09-30-2025 End: 09-30-2025 Patient encounter procedure 09/30/2025 7:00 AM EDT Office Visit [facility] [address] [place] [address] [facility] [place] [address] [facility] Start: 09-21-2025 Depression Screening Depression Scre ening [facility] Start: 10-16-2024 End: 10-16-2024 Patient encounter procedure 10/16/2024 8:20 AM EDT Procedure Visit [facility] [address] [facility] [address] [place] [phone] Raza Manley MD [address] [place] [address] [address] [place] [address] [facility] [place] Start: 10-14-2024 Influenza vaccination Influenza Vacc ine (#1) [facility] [facility] Start: 10-07-2024 End: 10-07-2024 Patient encounter procedure 10/07/2024 8:20 AM EDT Procedure Visit [facility] [address] [place] [id number] Maxime Aguayo MD [address] [place] [address] [facility] [place] Start: 09-24-2024 End: 09-24-2025 Comprehensive metabolic 1998 panel - Serum or Plasma Comprehensive metabolic panel Lab Routine Screening for diabetes mellitus Expected: 09/24/2024 (Approximate), Expires: 09/24/2025 [facility] Work Phone: Comment on above: Expected: 09/24/2024 (Approximate), Expires: 09/24/2025 Start: 09-24-2024 End: 09-24-2025 Lipid 1996 panel - Serum or Plasma Lipid panel Lab Routine Screening for lipid disorders Expected: 09/24/2024 (Approximate), Expires: 09/24/2025 [facility] Comment on above: Expected: 09/24/2024 (Approximate), Expires: 09/24/2025 Start: 10-15-2023 COVID-19 Vaccine ( season) COVID-19 Vaccine ( season) [facility] Start: 10-15-2023 Influenza vaccination Influenza Vacc ine (#1) [facility] Start: 10-14-2022 Influenza vaccination Influenz a Vaccine (Season Ended) [facility] Start: 07-21-2020 COVID-19 Vaccine (3 - Booster for Moderna series) COVID-19 Vaccine (3 - Booster for Moderna series) [facility] Start: 01-08-2014 Zoster Vaccines (2 of 3) Zoster Vacc namrata (2 of 3) [facility] Start: 12-11-2013 MMR Vaccines (1 of 1 - Standard series) MMR Vaccines (1 of 1 - Standard series) [facility] Start: 2012 Screening for malign ant neoplasm of lung Lung Cancer Screening [facility] Start: 1981 Pneumococcal Vaccine : 50+ Years (1 of 2 - PCV) Pneumococcal Vaccine: 50+ Years (1 of 2 - PCV) [facility] Start: 1980 Diabetes mellitus screening Diabetes Screening [facility] Start: 1980 Hepatitis C screening Hepatitis C Sc reening [facility] Start: 1974 Depression Screening Depression Scre ening [facility] Start: 1968 Pneumococcal Vaccine : Pediatrics (0 to 5 Years) and At-Risk Patients (6 to 64 Years) (1 - PCV) Pneumococcal Vaccine: Pediatrics (0 to 5 Years) and At-Risk Patients (6 to 64 Years) (1 - PCV) [facility] Start: 1962 Hepatitis B Vaccines (1 of 3 - 3-dose series) Hepatitis B Vaccines (1 of 3 - 3-dose series) [facility] Start: 1960 HIV screening HIV Screening [facility] Start: 1962 Lipid panel Lipid Panel [facility] Start: 1962 Screening for malign ant neoplasm of colon [facility] Immunizations Immunization Date Immunization Notes Care Provider Tommy james 09-24-2024 Pneumococcal Conjuga te PCV20, Pf (Prevnar 20) Elisabet Garcia MD Work Phone: [facility] 06-14-2022 tetanus toxoid, redu sandra diphtheria toxoid, and acellular pertussis vaccine, adsorbed Percy Pacheco MD Work Phone: [facility] 01-30-2021 zoster vaccine recombinant Elisabet Garcia MD Work Phone: [facility] 11-29-2020 zoster vaccine recombinant Elisabet Garcia MD Work Phone: [facility] 05-26-2020 Moderna SARS-CoV-2 Vaccination Percy Pacheco MD Work Phone: [facility] 04-28-2020 Moderna SARS-CoV-2 Vaccination Percy Pacheco MD Work Phone: [facility] 11-13-2013 influenza virus vacc ine, whole virus Percy Pacheco MD Work Phone: [facility] 11-13-2013 zoster vaccine, live Percy bamu MD Work Phone: [facility] 11-13-2013 influenza virus vacc ine, unspecified formulation Percy Pacheco MD Work Phone: [facility] Payers Date Payer Category Payer Self-pay 2024 [employer] are - HMO MMO [employer] [id number] 2024 Unknown [id number] 2022 Worker's Compensation [id number] Unknown Unknown [id number] Social History Date Type Detail Facility Start: 09-24-2024 Tobacco smoking stat [facility] Smokes tobacco daily [facility] History of tobacco use Cigarette Smoker [facility] Start: 08-24-2020 End: 09-24-2024 Alcohol intake Current drinker of alcohol (finding) [facility] Start: 1960 Sex Assigned At Not on file [facility] Start: 06-04-2022 End: 06-14-2022 Exposure to SARS-CoV-2 (event) Not sure [facility] Start: 09-13-2021 Sex Male (finding) [facility] Start: 09-21-2024 End: 09-24-2024 Gender identity Not on file [facility] Start: 09-21-2024 End: 09-24-2024 Cigarettes smoked current (pack per day) - Reported 1 [facility] Start: 09-24-2024 Tobacco use and exposure Smokeless tobacco non-user [facility] How often do you nee d to have someone help you when you read instructions, pamphlets, or other written material from your doctor or pharmacy [SILS] Never [facility] Has the [employer], [employer], or water [employer] threatened to shut off services in your home in past 12Mo No [facility] Are you now , , , , never or living with a partner? [facility] How often to you hav e a drink containing alcohol? 2-3 time sa week [facility] How many standard drinks containing alcohol do you have on a typical day? 5 or 6 [facility] How often do you hav e 6 or more drinks on 1 occasion? Weekly [facility] How hard is it for y ou to pay for the very basics like food, housing, medical care, and heating Not hard at all [facility] Do you feel stress - tense, restless, nervous, or anxious, or unable to sleep at night because your mind is troubled all the time - these days [OSQ] Only a little [employer] (I/We) worried tomasa er (my/our) food would run out before (I/we) got money to buy more. Never true [employer] Tobacco smoking stat us [place] Unknown if ever smoked [facility] Work Phone: Start: 1960 Sex Assigned At Male [facility] Clinical Notes 06-14-2022 to 09-24-2024 Assessment & Plan Note - Elisabet Garcia MD - 09/24/2024 3:48 PM EDTAssessment & Plan Note - Elisabet Garcia MD - 09/24/2024 3:48 PM EDTTstefania Donohue MA - 09/24/2024 2:15 PM EDT Note Date & Type Note Facility 09-24-2024 Evaluation + Plan note Associated Problem(s): Urinary retention due to benign prostatic hyperplasia Significant, he is currently on Flomax and has an indwelling catheter from urology. He is scheduled for a cystoscopy in 2 weeks. [facility] 09-24-2024 Evaluation + Plan note Associated Problem(s): Benign prostatic hyperplasia with urinary retention Significant, he is currently on Flomax and has an indwelling catheter from urology. He is scheduled for a cystoscopy in 2 weeks. [facility] 09-24-2024 Miscellaneous Notes Associate d Problem(s): [...] in 2 weeks. documented in this encounter [facility] 09-24-2024 History of Presen t illness Narrative Patient verified by last name and date of . Images from the original note were not included. 09/24/2024 Laith aGrcia (: 1960) is a 64 y.o. male , Established patient, here for evaluation of the following chief complaint(s): ER Follow-up (In [place]-09/14/24 and 09/16/24) and Urinary Retention (Still have [...] new patient, he was on vacation in [place] and ended up with urinary retention and [...] adverse reactions immediately. documented in this encounter [facility] 06-14-2022 Note Associated Order(s): Laceration Repair Procedure Laceration Repair Performed by: Percy Pacheco MD Authorized by: Percy Pacheco MD Consent: Consent obtained: Verbal Consent given by: Patient Risks, benefits, and alternatives were discussed: yes Risks discussed: Infection and pain Alternatives discussed: No treatment and delayed treatment [place] protocol: Procedure explained and questions answered to [...] completion: Tolerated Percy Pacheco MD 06/14/22 1322 [facility] 06-14-2022 Note Associated Order(s): Laceration Repair Procedure Laceration Repair Performed by: Percy Pacheco MD Authorized by: Percy Pacheco MD Consent: Consent obtained: Verbal Consent given by: Patient Risks, benefits, and alternatives were discussed: yes Risks discussed: Infection and pain Alternatives discussed: No treatment and delayed treatment [place] protocol: Procedure explained and questions answered to [...] completion: Tolerated Percy Pacheco MD 06/14/22 1322 [facility] 06-14-2022 Miscellaneous Notes Associate d Order(s): Laceration Repair Procedure Laceration Repair Performed by: Percy Pacheco MD Authorized by: Percy Pacheco MD Consent: Consent obtained: Verbal Consent given by: Patient Risks, benefits, and alternatives were discussed: yes Risks discussed: Infection and pain Alternatives discussed: No treatment and delayed treatment [place] protocol: Procedure explained and questions answered to [...] completion: Tolerated Percy Pacheco MD 06/14/22 1322 documented in this encounter [facility] 06-14-2022 Hospital Discharg e instructions Percy Pacheco MD - 06/14/2022 1:19 PM EDT Suture removal in 3 to 6 days The following attachments cannot be sent through Care Everywhere.Laceration Infection (Jamaican)documented in this encounter [facility] 06-14-2022 Emergency department Note Wound repair by physician with sutures placed. Pt tolerated well. Tatiana Funez RN 06/14/22 1340 [facility] 06-14-2022 Emergency department Note EMERGENCY DEPARTMENT ENCOUNTER Pt Name: Laith Garcia Birthdate 1960 Date of evaluation: 06/14/2022 ED Provider: Percy Pacheco MD CHIEF COMPLAINT Chief Complaint Patient presents with Laceration HISTORY OF PRESENT ILLNESS (Location/Symptom, Timing/Onset, Context/Setting, Quality, Duration, Modifying Factors, Severity) Note limiting factors. I wore appropriate PPE for the entirety of this encounter. History provided by: Patient emulsification operator used: No Laceration Location: forehead. Length: 2.5 [...] CRUCIATE LIGAMENT REPAIR Right HERNIA REPAIR 09/30/2016 [facility] NASAL SEPTUM SURGERY WISDOM TOOTH EXTRACTION CURRENT [...] nursing note reviewed. Exam conducted with a ecg technician present. Constitutional: General: He is not in [...] Discharge 06/14/2022 01:19:14 PM PATIENT REFERRED TO: [facility] Call in 1 day DISCHARGE MEDICATIONS: New [...] tolerated well. Tatiana Funez RN 06/14/22 1349 documented in this encounter [facility] 06-14-2022 Emergency department Triage note Pt ambulatory to room 7 with approx 3.5cm head laceration to forehead. Bleeding is controlled at time of arrival. Last tetanus unknown [facility] 06-14-2022 Physician Emergen cy department Note EMERGENCY DEPARTMENT ENCOUNTER Pt Name: Laith Garcia Birthdate 1960 Date of evaluation: 06/14/2022 ED Provider: Percy Pacheco MD CHIEF COMPLAINT Chief Complaint Patient presents with Laceration HISTORY OF PRESENT ILLNESS (Location/Symptom, Timing/Onset, Context/Setting, Quality, Duration, Modifying Factors, Severity) Note limiting factors. I wore appropriate PPE for the entirety of this encounter. History provided by: Patient emulsification operator used: No Laceration Location: forehead. Length: 2.5 [...] redness, no swelling and no streaking Laith A Mavis is a 61 y.o. male who [...] CRUCIATE LIGAMENT REPAIR Right HERNIA REPAIR 09/30/2016 [facility] NASAL SEPTUM SURGERY WISDOM TOOTH EXTRACTION CURRENT [...] nursing note reviewed. Exam conducted with a ecg technician present. Constitutional: General: He is not in [...] Physician EKG interpretation can be found in [facility] RADIOLOGY (Per Emergency Physician): Interpretation per the [...] Discharge 06/14/2022 01:19:14 PM PATIENT REFERRED TO: [facility] Call in 1 day DISCHARGE MEDICATIONS: New [...] 06/14/22 1321 Percy Pacheco MD 06/14/22 1336 [facility] Work Phone: Evaluation note Diagnosis Laceration of forehead, initial encounter- Primary documented [facility] this encounter [facility] Diagnosis Annual physical exam- Primary Routine general medical examination at a health care facility Benign prostatic hyperplasia with urinary retention Urinary retention due to benign prostatic hyperplasia Screening for diabetes mellitus Screening for lipid disorders documented in this encounter [facility] noteNo assessment information availableWUniversity [facility] Work Phone: Reason for referral (narrative)No reason for referral information availableWUniversity [facility] Work Phone: Summary Purpose Family History No Family History Records FoundNo Family History Records FoundNo Family History Records Found Advance Directives No Advanced Directives Records FoundNo Advanced Directives Records FoundNo Advanced Directives Records Found Chief Complaint and Reason for Visit Chief Complaint Admit Date ARNOLD CLOGGED September 27, 2024 8: 02pm Additional Source Comments (unrecognized sect ion and content) No Status Records FoundNo Status Records FoundNo Status Records Found INFORMATION SOURCE (unrecogn ized section and content) DATE CREATED AUTHOR 08/01/2017 [facility] DATE CREATED AUTHOR AUTHOR'S ORGANIZ ATION 03/16/2024 [facility] DATE CREATED AUTHOR AUTHOR'S ORGANIZ ATION 09/27/2024 [facility] Reason for Visit (unrecogniz ed section and content) Reason Comments Laceration Reason Comments ER Follow-up In [place]-09/14/24 and 09/16/24 Urinary Retention Still have catheter Saw urology this morning - Dr Maxime Aguayo has testing scheduled Scheduled Active and Recently Administ ered Medications (unrecognized section and content) Medication Order 06/12/2022 06/13/2022 06/14/2022 bacitracin ointment (COMPLETED) Topical, Once, On 06/14/22 at 1325, For 1 dose 1325 (Given - Provid er: Tatiana Funez RN) lidocaine (Xylocaine) 1 % injection 10 mL (COMPLETED) 10 mL, Infiltration, Once, On Mon06/14/22 at 1305, For 1 dose 1305 (Given - Provid er: Tatiana Funez RN) Care Teams (unrecognized sec tion and content) [employer] Relationship Specialty Start Date End Date Elisabet Garcia MD [address] [place] [address] PCP - General 06/03/15 [employer] Relationship Specialty Start Date End Date Elisabet Garcia MD [address] [place] [id number] PCP - General 06/03/15 [employer] Relationship Specialty Start Date End Date Elisabet Garcia MD [address] [facility] [place] [address] PCP - General 06/03/15 Maxime Aguayo MD [address] [place] [address] Urology 09/24/24 Team Status: Active Member Role/Relationship Status Dates No Primary Care Physician Primary Care Provider Active Team Status: Inactive Member Role/Relationship Status Dates No Primary Care Physician Primary Care Provider Active Start: September 27, 2024 End: September 27, 2024 Ed Physician Provider Emergency Provider Active Start: September 27, 2024 End: September 27, 2024 Goals (unrecognized section and content) Goals may be documented in a n alternate section FOR RECORDS PERTAINING TO PATIENTS WHO ARE [...] BE BASED ON THE PRIMARY CLINICAL RECORDS. [employer] provides no warranty or guarantee of the accuracy or completeness of information in this document.
--- NOTE | 2024-09-28 22:45 | EX.ED.DYSGE1 ---
HPI History of Present Illness Chief Complaint: Hinton C/O Informant: patient Narrative Narrative: Patient is a 64-year-old male with history of recent diagnosis of urinary tension about 3 weeks ago in [place]. He is presenting for sensation of need to urinate and decreased urine output in his Hinton catheter. He states that since Monday he has been having hematuria which he did have after the initial Hinton was placed. He followed with Dr. Capps at [facility] urology. He notes that he went to the ER last night because his Hinton was not draining however when he was here it suddenly started draining again so he left and was not seen. He went home and drank a lot of fluid throughout the day. His Hinton was continued to drain throughout the day but then tonight at 7 PM he is had no output. He is continue to have blood and clots come out. Is not on any blood thinners. Has some lower abdominal discomfort associated with feeling he needs to urinate. No other complaints or concerns at this time. He does note that his Hinton catheter was exchanged on Monday by his urologist. They did use a guidewire for this. He has had worsening hematuria since. [facility] Home Medications ?Medication ?Instructions ?Recorded ?Last Taken ?Type tamsulosin 0.4 mg capsule 0.4 mg PO DAILY 09/28/24 Unknown History sulfamethoxazole 800 1 tab PO BID 7 days #14 tabs 09/29/24 Unknown Rx mg-trimethoprim 160 mg tablet (Bactrim DS) Allergy/AdvReac Type Severity Reaction Status Date / Time No Known Allergies Allergy Verified 09/28/24 20:55 Social History Smoking Status: Never smoker [facility] ED Constitutional Constitutional ED: Denies chills or fever(s) Gastrointestinal Gastrointestinal: Reports abdominal pain; Denies nausea or vomiting Genitourinary Genitourinary ED: Reports hematuria and other Details: Hinton catheter not draining Musculoskeletal Musculoskeletal: Denies arthralgias or myalgias Integumentary Denies rash Neurologic Neurologic: Denies weakness Hematologic/Lymphatic Hematologic/Lymphatic: Denies easy bleeding or easy bruising EXAM Physical Exam Const Vital Signs: 09/28/24 20:55 09/28/24 23:57 Temperature 97.4 F L Temperature Source Oral Pulse Rate 92 74 Respiratory Rate 18 18 Blood Pressure 143/94 H 131/80 H Blood Pressure Mean 110 97 Pulse Ox 98 98 Oxygen Delivery Method Room Air Room Air Positive well nourished and well developed Constitutional Narrative: Mildly uncomfortable General Appearance ED: well developed; Negative for pallor HEENT Reports moist mucous membranes Chest Wall inspection of chest normal Resp normal respiratory effort Cardio regular rate and regular rhythm GI non-tender GI Narrative: Mild suprapubic distention present, associated tenderness Palpation: Negative for guarding Narrative: Hinton catheter in place. There is bloodstained urine in the bag but no significant urine in his leg bag. Normal external genitalia. Neuro oriented x3 Sensorium / Orientation: alert Motor Exam: Negative for general weakness Psych mental status grossly normal Skin no rashes or lesions noted General Skin Exam: Negative for pallor MDM MDM MDM Narrative Medical decision making narrative: Patient evaluated for recurrent hematuria and Hinton catheter dysfunction where is not draining. Differential includes urinary tract infection, Hinton catheter malfunction, bladder mass. Patient overall is well-appearing normal vital signs. Low suspicion for symptomatic anemia at this time. Do not think he needs an H&H. No symptoms of urinary retention only started couple hours ago and low suspicion for LUCERO. After irrigation patient did have spontaneous drainage of bloody urine. We attempted manual irrigation but it did not come out readily but ultimately did drain to gravity. Given that he required a guidewire for his last Hinton catheter exchange I am hesitant to replace his catheter at this time since it is still draining. Given the degree of hematuria I am concerned that I will obstruct again when he goes home. I did recommend transfer to [facility] where his urologist is in addition we do not currently have urology coverage. At this time patient would prefer to try management at home and is aware that if this happens again , he likely will need continuous bladder irrigation and might still need to go up to [facility] especially if we dont have urology coverage. Urine culture is sent and we will start him on Bactrim in case he has a urinary tract infection that is causing this worsening hematuria. He does not have any systemic symptoms I do not think he needs blood work. Patient and counseled on plan of care. Given return precautions. Discharged home in stable condition. Discharge Plan Triage Chief Complaint: Hinton C/O ED Provider: Godman,Marilyn Dx/Rx/DC Orders Clinical Impression: Hematuria, Hinton catheter problem Instructions: ED Hinton Catheter, Care Prescriptions: New sulfamethoxazole-trimethoprim [Bactrim DS] 800-160 mg tablet 1 tab PO BID 7 Days Qty: 14 0RF No Action tamsulosin 0.4 mg capsule 0.4 mg PO DAILY Primary Care Provider: Rebel Gamble Referrals: Rebel Gamble MD [Primary Care Provider] - Activity Restrictions/Additional Instructions: PLease follow up with your urologist as scheduled. We did discuss transfer to [facility] where urologist is tonight at this time he would like to continue monitor at home. If your Hinton catheter stops draining again please return here or go up to [facility]. Make sure you are drinking plenty of fluids. You have been started antibiotics in case of infection that is causing his worsening blood in your urine. Urine culture was sent today. Print Language: Malay Disposition Disposition: Home, Self Care
[2024-09-28 23:57] VITALS: BP 131/80; PULSE 74; RESP 18; O2SAT 98
[2024-09-29 01:03] VITALS: BP 131/83; PULSE 74; RESP 18; TEMP 36.7; O2SAT 99
[2024-09-29] MEDS: Smz/Tmp Ds Tablet 1 TABLET PO (01:09)
== END 2024-09-29 01:13 | disposition home or self-care (01) ==
PROVIDERS: Emergency Provider Emergency Medicine; PCP Family Medicine; Visit Provider Emergency Medicine
DX: R31.9 Hematuria, unspecified (principal); T83.091A Other mechanical complication of indwelling urethral catheter, initial encounter
CPT/HCPCS: 87077; 87086; 87088; 87186; 99282